=== PATIENT | female | born 1955 | race Caucasian/White ===

== ENCOUNTER 2017-05-28 04:31 | Inpatient (IN) | payer OTHER ==
--- NOTE | 2017-05-28 04:42 | EDPHY ---
H & P Stated Complaint: chest pain HPI/ROS: HPI CHIEF COMPLAINT: Chest pain HISTORY OF PRESENT ILLNESS: This patient very pleasant 62-year-old female she does have significant past medical history for coronary artery disease with 1 stent, she does smoke tobacco and marijuana, she presents emergency room 445 in the morning with chest pain. She states it has been present approximately for 2 hours. She describes it as a dull pain that radiates across her chest up to her shoulders. More right-sided than left-sided. No pleuritic nature. No shortness of breath. No jaw pain neck pain or diaphoresis. No nausea. However pain was rather severe. She distally has had a history for pulmonary embolism. She is not on any anticoagulation. She does tell me her chest pain is still present. Past Medical History: Pulmonary embolism, coronary disease with 1 stent, TIA Past Surgical History: No recent surgery Social History: Daily tobacco use, daily marijuana use, denies other illicit drugs. Denies alcohol. Family History: Noncontributory ROS REVIEW OF SYSTEMS: A comprehensive 10 point review of systems is otherwise negative aside from elements mentioned in the history of present illness. Exam Constitutional appears well nontoxic, triage nursing summary reviewed, vital signs reviewed, awake/alert. Eyes normal conjunctivae and sclera, EOMI, PERRLA. HENT normal inspection, atraumatic, moist mucus membranes, no epistaxis, neck supple/ no meningismus, no raccoon eyes. Respiratory clear to auscultation bilaterally, normal breath sounds, no respiratory distress, no wheezing. Cardiovascular rate normal, regular rhythm, no murmur, no edema, distal pulses normal. Gastrointestinal soft, non-tender, no rebound, no guarding, normal bowel sounds, no distension, no pulsatile mass. Genitourinary no CVA tenderness. Musculoskeletal no midline vertebral tenderness, full range of motion, no calf swelling, no tenderness of extremities, no meningismus, good pulses, neurovascularly intact. Skin pink, warm, & dry, no rash, skin atraumatic. Neurologic awake, alert and oriented x 3, AAOx3, moves all 4 extremities equally, motor intact, sensory intact, CN II-XII intact, normal cerebellar, normal vision, normal speech. Psychiatric normal mood/affect. Heme/Lymph/Immune no lymphadenopathy. Differential diagnosis includes but is not limited to: ACS, atypical chest pain , pneumothorax, pneumonia, pulmonary embolism, aortic dissection, congestive heart failure, tumor, musculoskeletal pain, esophageal pain, GERD, peptic ulcer disease, pancreatitis Medical Decision Making: Plan for this patient IV establishment with full threat monitoring analyst, EKG to rule out acute coronary syndrome, sent troponin, D- dimer given PE history, chest x-ray, electrolytes. Full-dose aspirin given and nitroglycerin. Re-evaluation: EKG interpretation by me on record in [employer] system. Impression time of EKG 4:49 a.m., this is sinus rhythm rate of 60 T-wave abnormalities noted lateral leads V4 V5 V6. AVL. This is changed from previous EKG. 0534AM: Patient's troponin noted to me to be positive. D-dimer negative. Chest x-ray reviewed by myself. One view negative for acute cardiopulmonary disease. Given her abnormal EKG and positive troponin I have Lovenox her. I will admit her to the hospitalist service to telemetry monitoring bed. For chest pain ACS rule out. No evidence of acute ST elevation [place] at this time. 0553AM: Spoke with the hospitalist service Dr. Salamanca, agrees to admit this patient. Reason for admission chest pain with positive troponin. T-wave abnormalities lateral leads. She does have cardiac risk factors which include cardiac stent, tobacco abuse and Age. She is hemodynamically stable and safe for PCU admission. Full-dose aspirin has been given. 2 mg IV morphine. Source: Patient - Personal History Current Tetanus/Diphtheria Vaccine: Yes Current Tetanus Diphtheria and Acellular Pertussis (TDAP): Yes Tetanus Vaccine Date: March 2009 - Medical/Surgical History Hx Asthma: No Hx Cardiac Disease: Yes Hx Renal Disease: No Hx Cirrhosis: No Hx Alcoholism: No Hx HIV/AIDS: No Hx Splenectomy or Spleen Trauma: No Other PMH: CARDIAC STENT, CHOLECYSTECTOMY, UMBILICAL HERNIA WITH REPAIR, TONSILLECTOMY - Social History Smoking Status: Current every day smoker Constitutional: Initial Vital Signs Temperature (C) 36.7 C 05/28/17 04:35 Heart Rate 67 05/28/17 04:35 Respiratory Rate 18 05/28/17 04:35 Blood Pressure 118/62 05/28/17 04:35 O2 Sat (%) 98 05/28/17 04:35 O2 Delivery Mode Room Air Allergies/Adverse Reactions: No Allergies [NKDA] Allergy (Unknown, Verified 01/03/13 10:16) Home Medications: Medication Instructions Recorded Aspirin [Aspirin 81mg (*)] 81 mg PO DAILY #1 tab 05/28/17 Atorvastatin Calcium [Lipitor 20 20 mg PO DAILY #30 tab 05/28/17 mg (*)] Medical Decision Making - Data Points Laboratory Results: Laboratory Results 05/28/17 04:55 05/28/17 04:55 Medications Given: Discontinued Medications Aspirin Buffered (Aspirin Ec) 325 mg PO EDNOW ONE Stop: 05/28/17 04:48 Last Admin: 05/28/17 05:04 Dose: 325 mg Atorvastatin Calcium (Lipitor) 80 mg PO DAILY JAMILA Stop: 11/24/17 08:59 Last Admin: 05/28/17 14:01 Dose: 80 mg Diazepam (Valium) 5 mg PO ONCALL ONE Stop: 05/28/17 10:12 Last Admin: 05/28/17 11:00 Dose: 5 mg Diphenhydramine HCl (Benadryl) 25 mg PO ONCALL ONE Stop: 05/28/17 10:12 Last Admin: 05/28/17 11:00 Dose: 25 mg Enoxaparin Sodium (Lovenox) 60 mg SC EDNOW ONE Stop: 05/28/17 05:46 Last Admin: 05/28/17 05:53 Dose: 60 mg Famotidine (Pepcid) 20 mg PO ONCALL ONE Stop: 05/28/17 10:12 Last Admin: 05/28/17 11:00 Dose: 20 mg Heparin Sodium (Porcine) (Heparin Injection) 0 unit IVP ONCE ONE PRN Reason: Protocol Stop: 05/28/17 06:27 Last Admin: 05/28/17 09:58 Dose: 3,700 units Sodium Chloride (Ns) 1,000 mls @ 0 mls/hr IV EDNOW ONE; Wide Open PRN Reason: Protocol Stop: 05/28/17 04:47 Last Admin: 05/28/17 05:03 Dose: 1,000 mls Heparin Sodium (Porcine) (Heparin 50 Units/Ml (Premix)) 500 mls @ 0 mls/hr IV CONT JAMILA; Per Protocol PRN Reason: Protocol Stop: 11/24/17 06:29 Last Admin: 05/28/17 09:59 Dose: 500 mls Morphine Sulfate (Morphine) 2 mg IVP EDNOW ONE Stop: 05/28/17 05:31 Last Admin: 05/28/17 05:37 Dose: 2 mg Nicotine (Nicoderm Cq) 21 mg TD DAILY JAMILA Stop: 11/24/17 12:29 Last Admin: 05/28/17 14:03 Dose: 21 mg Nitroglycerin (Nitrostat) 0.4 mg SL EDNOW ONE Stop: 05/28/17 04:48 Last Admin: 05/28/17 09:59 Dose: Not Given Ondansetron HCl (Zofran) 4 mg IVP EDNOW ONE Stop: 05/28/17 06:48 Last Admin: 05/28/17 06:48 Dose: 4 mg Departure - Departure Disposition: [facility] Inpatient Acute Clinical Impression: Troponin level elevated, History of coronary artery disease Chest pain Qualifiers: Chest pain type: unspecified Qualified Code(s): R07.9 - Chest pain, unspecified Condition: Fair
[2017-05-28] MEDS ORDERED: NS 1,000 ML IV ONE (04:46)
[2017-05-28] MEDS ORDERED: NITROGLYCERIN 0.4 MG BTL SL ONE (04:47)
[2017-05-28] MEDS ORDERED: ASPIRIN EC 325 MG TAB PO ONE (04:47)
--- NOTE | 2017-05-28 04:51 | CPEKG ---
Heart Rate: 60 RR Interval: 1000 P-R Interval: 176 QRSD Interval: 94 QT Interval: 385 QTC Interval: 385 P [place]: 66 QRS [place]: -19 T Wave [place]: 120 EKG Severity - ABNORMAL ECG - EKG Impression: SINUS RHYTHM EKG Impression: BORDERLINE LEFT AXIS DEVIATION EKG Impression: NONSPECIFIC T ABNORMALITIES, ANT-LAT LEADS Electronically Signed By: Robin Weller 28-May-2017 07:45:12
[2017-05-28 05:07] LABS: % IMMATURE GRANULYOCYTES 0.3 % (0.0-1.1); ABSOLUTE IMMATURE GRANULOCYTES 0.04 10^3/uL (0.00-0.10); ADD DIFF? NO; ADD MORPH? NO; ADD SCAN? NO; ATYPICAL LYMPHOCYTE FLAG 20 (0-99); FRAGMENT RBC FLAG 0 (0-99); HEMATOCRIT 42.1 % (38.0-47.0); HEMOGLOBIN 14.7 g/dL (12.6-16.3); LEFT SHIFT FLG 0 (0-99); LIPEMIA HEMOLYSIS FLAG 90 (0-99); MEAN CELL HEMOGLOBIN 31.7 pg (27.9-34.1); MEAN CELL HEMOGLOBIN CONCENTR. 34.9 g/dL (32.4-36.7); MEAN CELL VOLUME 90.9 fL (81.5-99.8); MEAN PLATELET VOLUME 9.8 fL (8.7-11.7); PLATELET CLUMPS FLAG 0 (0-99); PLATELET COUNT 245 10^3/uL (150-400); RED BLOOD CELL COUNT 4.63 10^6/uL (4.18-5.33); RED CELL DISTRIBUTION WIDTH 13.6 % (11.5-15.2)
[2017-05-28 05:20] LABS: INR 0.87 (0.83-1.16); PROTIME(PATIENT) 11.7 SEC (12.0-15.0)
[2017-05-28 05:21] LABS: ALANINE AMINOTRANSFERASE 26 IU/L (9-52); ALBUMIN 4.3 g/dL (3.5-5.0); ALKALINE PHOSPHATASE 83 IU/L (38-126); ANION GAP 12 mEq/L (8-16); APTT 28.8 SEC (23.0-38.0); ASPARTATE AMINOTRANSFERASE 20 IU/L (14-46); BILIRUBIN,TOTAL 0.7 mg/dL (0.1-1.4); BILIRUBIN-CONJUGATED 0.4 mg/dL (0.0-0.5); BILIRUBIN-UNCONJUGATED 0.3 mg/dL (0.0-1.1); CALCIUM 10.3 mg/dL (8.5-10.4); CARBON DIOXIDE 22 mEq/l (22-31); CHLORIDE 109 mEq/L (97-110); CREATININE 0.7 mg/dL (0.6-1.0); GLOMERULAR FILTRATION RATE > 60; GLUCOSE 109 mg/dL (70-100); POTASSIUM 4.2 mEq/L (3.5-5.2); SODIUM 143 mEq/L (134-144); TOTAL PROTEIN 7.1 g/dL (6.3-8.2)
[2017-05-28 05:31] LABS: CREATINE KINASE-MB FRACTION 1.73 ng/mL (0.00-3.19)
[2017-05-28] MEDS ORDERED: ENOXAPARIN 60 MG/0.6 ML SYR SC ONE ×2 (05:33→05:45)
[2017-05-28] MEDS ORDERED: ACETAMINOPHEN 325 MG TAB PO PRN (06:22)
[2017-05-28] MEDS ORDERED: ONDANSETRON 4 MG/2 ML VIAL IVP PRN (06:22)
[2017-05-28] MEDS ORDERED: ONDANSETRON DISINTEGRATING 4 MG TAB PO PRN (06:22)
[2017-05-28] MEDS ORDERED: oxyCODONE IR 5 MG TAB PO PRN (06:22)
[2017-05-28] MEDS ORDERED: HEPARIN 10,000 UNIT/10 ML MDV IVP ONE (06:26)
[2017-05-28] MEDS ORDERED: HEPARIN 10,000 UNIT/10 ML MDV IVP PRN (06:26)
[2017-05-28] MEDS ORDERED: NITROGLYCERIN 0.4 MG BTL SL PRN (06:27)
[2017-05-28] MEDS ORDERED: NS 1,000 ML IV SCH ×2 (06:30→10:15)
[2017-05-28] MEDS ORDERED: HEPARIN/DEXTROSE 500 ML IV SCH (06:30)
--- NOTE | 2017-05-28 06:31 | PDGENHP ---
History and Physical - Chief Complaint Chest pain - History of Present Illness 62 yo F w/ hx of CAD s/p stenting in 2009 presents with chest pain. She describes acute onset chest pain while having emotional conversation with her son around 3 AM. Pain is moderate severity, mid-sternal with radiation to R axilla; she denies diaphoresis, dizziness, and SOB. She thinks this pain is similar to the pain that led her to getting a stent in 2009. She smokes 1/2-1 PPD and takes no medication despite known CAD. History Information - Allergies/Home Medication List Allergies/Adverse Reactions: No Allergies [NKDA] Allergy (Unknown, Verified 01/03/13 10:16) Home Medications: NK [No Known Home Meds] 05/28/17 [Last Taken Unknown] I have personally reviewed and updated: family history, medical history - Past Medical History coronary artery disease, SVT - Surgical History Reports: cholecystectomy - Family History Additional family history: CHF - Social History Smoking Status: Current every day smoker Drug Use: None Review of Systems ROS: 10pt was reviewed & negative except for what was stated in HPI & below Physical Exam Temp Pulse Resp BP Pulse Ox 36.7 C 56 L 20 124/80 H 96 05/28/17 04:35 05/28/17 06:00 05/28/17 06:00 05/28/17 06:00 05/28/17 06:00 Constitutional: no apparent distress, appears nourished Eyes: PERRL, EOMI Ears, Nose, Mouth, Throat: moist mucous membranes, no oral mucosal ulcers Cardiovascular: regular rate and rhythym, no murmur, rub, or gallop Respiratory: no respiratory distress, clear to auscultation Gastrointestinal: normoactive bowel sounds, soft, non-tender abdomen Skin: warm, no rashes or abrasions Musculoskeletal: full muscle strength, no muscle tenderness Neurologic: AAOx3, CN II-XII Intact Psychiatric: interacting appropriately, not anxious Lab Data & Imaging Review 05/28/17 04:55 05/28/17 04:55 WBC 11.65 10^3/uL (3.80-9.50) H 05/28/17 04:55 RBC 4.63 10^6/uL (4.18-5.33) 05/28/17 04:55 Hgb 14.7 g/dL (12.6-16.3) 05/28/17 04:55 Hct 42.1 % (38.0-47.0) 05/28/17 04:55 MCV 90.9 fL (81.5-99.8) 05/28/17 04:55 MCH 31.7 pg (27.9-34.1) 05/28/17 04:55 MCHC 34.9 g/dL (32.4-36.7) 05/28/17 04:55 RDW 13.6 % (11.5-15.2) 05/28/17 04:55 Plt Count 245 10^3/uL (150-400) 05/28/17 04:55 MPV 9.8 fL (8.7-11.7) 05/28/17 04:55 Neut % (Auto) 65.8 % (39.3-74.2) 05/28/17 04:55 Lymph % (Auto) 26.8 % (15.0-45.0) 05/28/17 04:55 [place] % (Auto) 6.0 % (4.5-13.0) 05/28/17 04:55 Eos % (Auto) 0.5 % (0.6-7.6) L 05/28/17 04:55 Baso % (Auto) 0.6 % (0.3-1.7) 05/28/17 04:55 Nucleat RBC Rel Count 0.0 % (0.0-0.2) 05/28/17 04:55 Absolute Neuts (auto) 7.66 10^3/uL (1.70-6.50) H 05/28/17 04:55 Absolute Lymphs (auto) 3.12 10^3/uL (1.00-3.00) H 05/28/17 04:55 Absolute Monos (auto) 0.70 10^3/uL (0.30-0.80) 05/28/17 04:55 Absolute Eos (auto) 0.06 10^3/uL (0.03-0.40) 05/28/17 04:55 Absolute Basos (auto) 0.07 10^3/uL (0.02-0.10) 05/28/17 04:55 Absolute Nucleated RBC 0.00 10^3/uL (0-0.01) 05/28/17 04:55 Immature Gran % 0.3 % (0.0-1.1) 05/28/17 04:55 Immature Gran # 0.04 10^3/uL (0.00-0.10) 05/28/17 04:55 PT 11.7 SEC (12.0-15.0) L 05/28/17 04:55 INR 0.87 (0.83-1.16) 05/28/17 04:55 APTT 28.8 SEC (23.0-38.0) 05/28/17 04:55 D-Dimer 0.40 ug/mLFEU (0.00-0.50) 05/28/17 04:55 Sodium 143 mEq/L (134-144) 05/28/17 04:55 Potassium 4.2 mEq/L (3.5-5.2) 05/28/17 04:55 Chloride 109 mEq/L (97-110) 05/28/17 04:55 Carbon Dioxide 22 mEq/l (22-31) 05/28/17 04:55 Anion Gap 12 mEq/L (8-16) 05/28/17 04:55 BUN 16 mg/dL (7-23) 05/28/17 04:55 Creatinine 0.7 mg/dL (0.6-1.0) 05/28/17 04:55 Estimated GFR > 60 05/28/17 04:55 Glucose 109 mg/dL (70-100) H 05/28/17 04:55 Calcium 10.3 mg/dL (8.5-10.4) 05/28/17 04:55 Magnesium 2.0 mg/dL (1.6-2.3) 05/28/17 04:55 Total Bilirubin 0.7 mg/dL (0.1-1.4) 05/28/17 04:55 Conjugated Bilirubin 0.4 mg/dL (0.0-0.5) 05/28/17 04:55 Unconjugated Bilirubin 0.3 mg/dL (0.0-1.1) 05/28/17 04:55 AST 20 IU/L (14-46) 05/28/17 04:55 ALT 26 IU/L (9-52) 05/28/17 04:55 Alkaline Phosphatase 83 IU/L (38-126) 05/28/17 04:55 Creatine Kinase 81 IU/L (0-156) 05/28/17 04:55 CK-MB (CK-2) Fraction 1.73 ng/mL (0.00-3.19) 05/28/17 04:55 Troponin I 0.270 ng/mL (0.000-0.034) H 05/28/17 04:55 NT-Pro-B Natriuret Pep 116 pg/mL (0-125) 05/28/17 04:55 Total Protein 7.1 g/dL (6.3-8.2) 05/28/17 04:55 Albumin 4.3 g/dL (3.5-5.0) 05/28/17 04:55 Lipase 98 IU/L (23-300) 05/28/17 04:55 Visualized and Interpreted Chest x-ray results: Yes Chest X-Ray results: no infiltrate Visualized and Interpreted EKG results: Yes EKG additional interpertation: NSR, new T wave flattening in inferior and lateral leads Assessment & Plan Assessment: 62 yo F w/ hx of CAD presents with NSTEMI. Plan: 1. NSTEMI - Trop 0.2 in the setting of chest pain and T wave flattening on ECG. Patient hemodynamically and electrically stable at this time. She was chest pain free on my evaluation after morphine administered in ED. - S/p Lovenox x1, will place on heparin gtt - S/p ASA 325 mg, Nitro SL PRN - Monitor on telemetry - Will hold off on BB currently noting low/normal BP - Cardiology consult for cath today, maintain NPO 2. Hx CAD - Patient reports hx of stent placement in 2009. She does not take any medication despite this and smokes nearly a pack per day, which she had sone for 40 years. - Start ASA 81 qD, Atorvastatin 80 - Low dose metoprolol once able - Acute management as above Diet - NPO Code - Full Ppx - Heparin gtt Dispo - Admit to inpatient for management of ACS
[2017-05-28] MEDS ORDERED: ONDANSETRON 4 MG/2 ML VIAL IVP ONE (06:47)
[2017-05-28] MEDS ORDERED: ATORVASTATIN CALCIUM 40 MG TAB PO SCH (09:00)
[2017-05-28 09:53] LABS: INR 0.94 (0.83-1.16); PROTIME(PATIENT) 12.5 SEC (12.0-15.0)
[2017-05-28 09:54] LABS: APTT 35.3 SEC (23.0-38.0)
[2017-05-28] MEDS ORDERED: diphenhydrAMINE 25 MG CAP PO ONE ×2 (10:11→10:50)
[2017-05-28] MEDS ORDERED: FAMOTIDINE 20 MG TAB PO ONE (10:11)
[2017-05-28] MEDS ORDERED: TEMAZEPAM 15 MG CAP PO PRN (10:11)
[2017-05-28] MEDS ORDERED: DIAZEPAM 5 MG TAB PO ONE (10:11)
--- NOTE | 2017-05-28 10:22 | PDHPUP ---
History & Physical Update H&P update statement: This history and physical update is based on an assessment of the patient which was completed after admission or registration (within 24 hours), but prior to the surgery/procedure. H&P update: H&P reviewed & patient examined, no change in patient's condition since H&P completed
--- NOTE | 2017-05-28 10:22 | PDPROPOC ---
Sedation Plan of Care Sedation Plan of Care: vital signs stable, mental status noted, patient educated of risks, benefits, alternatives, patient can tolerate sedation ASA Classification: ASA 1 Mallampati Score: Class 2 332 Rule: 332
[2017-05-28] MEDS ORDERED: FAMOTIDINE 20 MG TAB ONE (10:50)
[2017-05-28] MEDS ORDERED: DIAZEPAM 5 MG TAB ONE (10:51)
[2017-05-28] MEDS ORDERED: LIDOCAINE 1% 300 MG/30 ML SDV ONE (11:05)
[2017-05-28] MEDS ORDERED: MIDAZOLAM 2 MG/2 ML VIAL ONE (11:05)
[2017-05-28] MEDS ORDERED: fentaNYL 100 MCG/2 ML INJ ONE (11:05)
[2017-05-28] MEDS ORDERED: HEPARIN 10,000 UNIT/10 ML MDV ONE (11:06)
[2017-05-28] MEDS ORDERED: IOPAMIDOL (ISOVUE-370) 150 ML BTL IV ONE (11:06)
[2017-05-28] MEDS ORDERED: VERAPAMIL 5 MG/2 ML VIAL ONE (11:06)
--- NOTE | 2017-05-28 11:09 | PDCARCONS ---
Cardiology Consult Reason for Consult: Non-Q-wave myocardial infarction Chief Complaint: Chest pain Requesting Physician: Hospitalist service History of Present Illness: I am asked to see this 62-year-old female known to our service. Known coronary artery disease with history of PCI of the right coronary artery in 2009 with a bare metal stent. She has had no recurrent cardiac events. Yesterday she awoke with substernal chest pressure. There was some radiation. There was mild nausea. She came to the emergency department. EKG was nonspecific however her troponin was elevated. She was treated conservatively with nitroglycerin oxygen and heparin. Symptoms have resolved. On my arrival this morning she is pain free. Patient denies PND orthopnea, palpitations, syncope, near syncope. Cardiac risk include hyperlipidemia and ongoing continued tobacco abuse. Patient also has a history of SVT documented in 2014. She has had no recurrence. Patient has a history of pulmonary embolic disease treated with anticoagulation for 6 months. Patient has underlying COPD secondary to tobacco abuse. She is currently taking no medications for secondary prevention. She is not taking antiplatelet therapy. She has been offered beta-radha, aspirin in the past. History Information - Allergies/Home Medication List Allergies/Adverse Reactions: No Allergies [NKDA] Allergy (Unknown, Verified 01/03/13 10:16) Home Medications: NK [No Known Home Meds] 05/28/17 [Last Taken Unknown] I have personally reviewed and updated: family history, medical history, social history - Past Medical History coronary artery disease, hyperlipidemia, SVT - Surgical History Reports: cholecystectomy - Family History Positive for: non-pertinent - Social History Smoking Status: Current every day smoker Drug Use: None Cardiac History - Cardiac History Past Cardiac History: PCI Cardiac Risk Factors: current cigarette smoker Timing/Duration: Days Severity: severe Severity Scale: 9 Location: substernal Activities at Onset: rest Modifying Factors: improves with: nitroglycerin, oxygen Associated Symptoms: nausea/vomiting TOR Risk Evaluation age greater or equal to 65: no greater or equal to 3 CAD risk factors: no known CAD(stenosis greater or eqaul to 50%): yes ASA use in past 7 days: yes severe angina(greater or equal to 2 episodes in 24hrs): yes EKG ST changes greater or equal to 0.5mm: no positive cardiac marker: yes Total Score: 4 TOR Score: 19.9% risk Physical Exam Temp Pulse Resp BP Pulse Ox 36.3 C 65 18 93/54 L 91 L 05/28/17 08:42 05/28/17 08:42 05/28/17 08:42 05/28/17 08:42 05/28/17 08:42 Constitutional: chronically ill appearing Eyes: anicteric sclera Ears, Nose, Mouth, Throat: moist mucous membranes, poor dentition Cardiovascular: regular rate and rhythym, pulses symmetric bilaterally, No JVD, No carotid bruit, No edema Peripheral Pulses: 1+: carotid (R), carotid (L), femoral (R), femoral (L), dorsalis-pedis (R), dorsalis-pedis (L) Respiratory: reduced air movement, rhonchi Gastrointestinal: normoactive bowel sounds, soft, non-tender abdomen, No guarding Genitourinary: no bladder fullness Skin: warm, No rash Musculoskeletal: full muscle strength, no muscle tenderness Neurologic: AAOx3, No weakness, No facial droop Psychiatric: interacting appropriately Lymph, Heme, Immunologic: no cervical LAD, no supraclavicular LAD Lab and Imaging 05/28/17 04:55 05/28/17 04:55 WBC 11.65 10^3/uL (3.80-9.50) H 05/28/17 04:55 RBC 4.63 10^6/uL (4.18-5.33) 05/28/17 04:55 Hgb 14.7 g/dL (12.6-16.3) 05/28/17 04:55 Hct 42.1 % (38.0-47.0) 05/28/17 04:55 MCV 90.9 fL (81.5-99.8) 05/28/17 04:55 MCH 31.7 pg (27.9-34.1) 05/28/17 04:55 MCHC 34.9 g/dL (32.4-36.7) 05/28/17 04:55 RDW 13.6 % (11.5-15.2) 05/28/17 04:55 Plt Count 245 10^3/uL (150-400) 05/28/17 04:55 MPV 9.8 fL (8.7-11.7) 05/28/17 04:55 Neut % (Auto) 65.8 % (39.3-74.2) 05/28/17 04:55 Lymph % (Auto) 26.8 % (15.0-45.0) 05/28/17 04:55 [place] % (Auto) 6.0 % (4.5-13.0) 05/28/17 04:55 Eos % (Auto) 0.5 % (0.6-7.6) L 05/28/17 04:55 Baso % (Auto) 0.6 % (0.3-1.7) 05/28/17 04:55 Nucleat RBC Rel Count 0.0 % (0.0-0.2) 05/28/17 04:55 Absolute Neuts (auto) 7.66 10^3/uL (1.70-6.50) H 05/28/17 04:55 Absolute Lymphs (auto) 3.12 10^3/uL (1.00-3.00) H 05/28/17 04:55 Absolute Monos (auto) 0.70 10^3/uL (0.30-0.80) 05/28/17 04:55 Absolute Eos (auto) 0.06 10^3/uL (0.03-0.40) 05/28/17 04:55 Absolute Basos (auto) 0.07 10^3/uL (0.02-0.10) 05/28/17 04:55 Absolute Nucleated RBC 0.00 10^3/uL (0-0.01) 05/28/17 04:55 Immature Gran % 0.3 % (0.0-1.1) 05/28/17 04:55 Immature Gran # 0.04 10^3/uL (0.00-0.10) 05/28/17 04:55 PT 12.5 SEC (12.0-15.0) 05/28/17 09:36 INR 0.94 (0.83-1.16) 05/28/17 09:36 APTT 35.3 SEC (23.0-38.0) 05/28/17 09:36 D-Dimer 0.40 ug/mLFEU (0.00-0.50) 05/28/17 04:55 Sodium 143 mEq/L (134-144) 05/28/17 04:55 Potassium 4.2 mEq/L (3.5-5.2) 05/28/17 04:55 Chloride 109 mEq/L (97-110) 05/28/17 04:55 Carbon Dioxide 22 mEq/l (22-31) 05/28/17 04:55 Anion Gap 12 mEq/L (8-16) 05/28/17 04:55 BUN 16 mg/dL (7-23) 05/28/17 04:55 Creatinine 0.7 mg/dL (0.6-1.0) 05/28/17 04:55 Estimated GFR > 60 05/28/17 04:55 Glucose 109 mg/dL (70-100) H 05/28/17 04:55 Calcium 10.3 mg/dL (8.5-10.4) 05/28/17 04:55 Magnesium 2.0 mg/dL (1.6-2.3) 05/28/17 04:55 Total Bilirubin 0.7 mg/dL (0.1-1.4) 05/28/17 04:55 Conjugated Bilirubin 0.4 mg/dL (0.0-0.5) 05/28/17 04:55 Unconjugated Bilirubin 0.3 mg/dL (0.0-1.1) 05/28/17 04:55 AST 20 IU/L (14-46) 05/28/17 04:55 ALT 26 IU/L (9-52) 05/28/17 04:55 Alkaline Phosphatase 83 IU/L (38-126) 05/28/17 04:55 Creatine Kinase 81 IU/L (0-156) 05/28/17 04:55 CK-MB (CK-2) Fraction 1.73 ng/mL (0.00-3.19) 05/28/17 04:55 Troponin I 0.341 ng/mL (0.000-0.034) H 05/28/17 09:36 NT-Pro-B Natriuret Pep 116 pg/mL (0-125) 05/28/17 04:55 Total Protein 7.1 g/dL (6.3-8.2) 05/28/17 04:55 Albumin 4.3 g/dL (3.5-5.0) 05/28/17 04:55 Lipase 98 IU/L (23-300) 05/28/17 04:55 EKG additional interpertation: EKG reveals sinus rhythm with nonspecific ST-T changes. A/P Assessment: 62-year-old female known coronary disease history of remote RCA stenting with a bare metal stent in 2009 with recurrent substernal chest pressure typical of her angina associated with elevation in troponin nonspecific EKG. Patient has an elevated TOR grade score. Will plan for diagnostic coronary angiogram with an eye towards therapy today. Patient has significant ongoing risk with hyperlipidemia and tobacco abuse. Will treat her tobacco withdrawal symptoms with nicotine patch today. Long discussion regarding cessation. Hyperlipidemia should be managed with statin therapy in light of known coronary disease. Will rediscuss medications with her. In light of her noncompliance if she does need a stent will plan for bare metal as dual antiplatelet therapy nursing home may be difficult. Plan: Diagnostic coronary angiogram. Aggressive secondary prevention with smoking cessation. Review of Systems - Review of Systems Constitutional: denies: chills, fever, malaise EENTM: no symptoms reported Respiratory: shortness of breath Cardiac: chest pain. denies: edema, irregular heart rate, lightheadedness, palpitations, syncope Gastrointestinal/Abdominal: nausea, vomiting. denies: constipation, diarrhea, black stools, blood streaked stools Genitourinary: no symptoms Musculoskelatal: no symptoms Skin: no symptoms Neurological: no symptoms Hematologic/Lymphatic: no symptoms reported Immunologic/allergic: no symptoms reported
[2017-05-28] MEDS ORDERED: ATROPINE SULFATE 1 MG/10 ML SYR IVP PRN (12:19)
--- NOTE | 2017-05-28 12:23 | PDDXCAT ---
Diagnostic Cath Note - . Date: 05/28/17 Heater Mechanic: Nicholas Indication: CCC Class III and IV angina on medical treatment - Procedure Access: left wrist Procedure: left heart catheterization, coronary angiography, left ventriculogram - Materials Left Heart Cath size: 5F Left Heart Cath materials: JL3.5, JR4.0, pigtail - Findings-Left Heart Catheterization LM: Unobstructed LAD: Large vessel extending to the apex: Luminal irregularities up to 30% LCX: Single obtuse marginal branch: Luminal irregularities of 20-30% RCA: Dominant vessel: Site of prior stenting widely patent: Luminal irregularities of 20-30% EDP: 10 mm of mercury LVEF: 50% with inferobasilar akinesis Wall motion: Inferobasilar akinesis consistent with prior myocardial infarction Complications: None Estimated blood loss: <50ml Closure method: TR Band Assessment: 1. Widely patent right coronary artery stent. 2. Moderate nonobstructive atherosclerosis without focal stenosis. 3. Inferobasilar scar with ejection fraction of 50%. Plan: Diagnostic angiogram along with EKG and clinical symptoms consistent with significant coronary artery disease. Recommend aggressive secondary prevention with daily aspirin 81 mg a day, statin therapy, low-dose beta-blockade. Most important issue is smoking cessation. Results discussed with patient's family. Patient Problems: Problems Problem Status Onset History of coronary artery disease Acute Chest pain Acute Troponin level elevated Acute
[2017-05-28] MEDS ORDERED: NICOTINE 21 MG/24 HR PATCH TD SCH (12:30)
[2017-05-28 16:35] VITALS: BP 109/52; PULSE 50; RESP 13; TEMP 97.5; O2SAT 96
--- NOTE | 2017-05-28 17:17 | GDS ---
[f rep st] DISCHARGE SUMMARY DISCHARGE DIAGNOSES: 1. Chest pain with mild elevation of troponin, although with nonobstructive coronary disease. 2. History of supraventricular tachycardia. HISTORY: This is a 62-year-old female who had chest pain during an emotional conversation overnight . HOSPITAL COURSE: The patient was admitted and did have mild troponin elevation. She went to the ia th lab, which showed an open stent and some 20% to 30% irregularities of other vessels, without any focal stenosis. I suspect she might have had some coronary spasm due to the emotional content versu s emotional conversation. She is currently chest pain-free, and she will be discharged home after heart catheterization precau tions are finished. We prescribed statin as well as aspirin for her. /[id number]/MODL
[2017-05-29] MEDS ORDERED: ASPIRIN EC 81 MG TAB PO SCH (09:00)
== END 2017-05-28 18:09 | disposition home or self-care (01) | DRG 287 ==
LOC: F2W 08:30
PROVIDERS: ADMIT Student in an Organized Health Care Education/Training Program; ATTEND Student in an Organized Health Care Education/Training Program
DX: R07.9 Chest pain, unspecified (principal); I25.10 Atherosclerotic heart disease of native coronary artery without angina pectoris; Z95.5 Presence of coronary angioplasty implant and graft; J44.9 Chronic obstructive pulmonary disease, unspecified; E78.5 Hyperlipidemia, unspecified; Z86.711 Personal history of pulmonary embolism; F17.210 Nicotine dependence, cigarettes, uncomplicated
CPT/HCPCS: 96374; C1769; J1644; J1650; J2250; J2405; J3010; Q9967

== ENCOUNTER 2017-07-28 15:33 | Inpatient (IN) | payer OTHER ==
--- NOTE | 2017-07-28 15:50 | CPEKG ---
Heart Rate: 56 RR Interval: 1071 P-R Interval: 180 QRSD Interval: 98 QT Interval: 424 QTC Interval: 410 P [place]: 74 QRS [place]: -4 T Wave [place]: 59 EKG Severity - NORMAL ECG - EKG Impression: SINUS RHYTHM Electronically Signed By: Ranulfo Pizano 28-Jul-2017 15:58:32
--- NOTE | 2017-07-28 15:53 | EDPHY ---
H & P Stated Complaint: Chest pain Time Seen by Provider: 07/28/17 15:45 HPI/ROS: CHIEF COMPLAINT: Chest pain HISTORY OF PRESENT ILLNESS: The patient presents to the ED with chest pain that began at noon. The patient reports his symptoms began after arguing with her family. She had a similar bout of pain in May which led to her hospitalization. She underwent an angiogram at that point time which demonstrated no evidence of flow limiting stenosis. She had a patent right coronary artery stent. The patient denies fever, cough or congestion. She did stop smoking cigarettes several weeks ago. The patient tells me she is reluctant to take Lipitor secondary to concerns about its side effects. She does continue to take aspirin on a daily basis. The patient currently reports her pain is sharp, left-sided and adjacent to her mid sternal area. REVIEW OF SYSTEMS: A comprehensive 10 point review of systems is otherwise negative aside from elements mentioned in the history of present illness. Source: Patient Exam Limitations: No limitations - Personal History Current Tetanus/Diphtheria Vaccine: Yes Tetanus Vaccine Date: March 2009 - Medical/Surgical History Hx Asthma: No Hx Chronic Respiratory Disease: No Hx Diabetes: No Hx Cardiac Disease: Yes Hx Renal Disease: No Hx Cirrhosis: No Hx Alcoholism: No Hx HIV/AIDS: No Hx Splenectomy or Spleen Trauma: No Other PMH: CARDIAC STENT, CHOLECYSTECTOMY, UMBILICAL HERNIA WITH REPAIR, TONSILLECTOMY - Social History Smoking Status: Current every day smoker - Physical Exam Exam: General Appearance: Alert, no distress Eyes: Pupils equal and round no pallor or injection ENT, Mouth: Mucous membranes moist Respiratory: There are no retractions, lungs are clear to auscultation Cardiovascular: Regular rate and rhythm Gastrointestinal: Abdomen is soft and nontender, no masses, bowel sounds normal Neurological: A&O, normal motor function, normal sensory exam, normal cranial nerves Skin: Warm and dry, no rashes Musculoskeletal: Neck is supple nontender Extremities: symmetrical, full range of motion Constitutional: Initial Vital Signs Temperature (C) 36.6 C 07/28/17 15:37 Heart Rate 68 07/28/17 15:37 Respiratory Rate 18 07/28/17 15:37 Blood Pressure 117/75 07/28/17 15:37 O2 Sat (%) 96 07/28/17 15:37 O2 Delivery Mode Nasal Cannula O2 (L/minute) 2 Allergies/Adverse Reactions: No Allergies [NKDA] Allergy (Unknown, Verified 07/28/17 15:35) Home Medications: Medication Instructions Recorded NK [No Known Home Meds] 07/28/17 Medical Decision Making - Diagnostics EKG Interpretation: EKG: Complete interpretation has been separately recorded in the [facility] archive. Summary impression: Sinus rhythm, rate 56 ED Course/Re-evaluation: I reviewed the patient's past medical records including her hospitalization in May of this year and her angiogram which demonstrated no more than 20-30% stenoses. The patient's EKG upon arrival demonstrates no evidence of ischemia. The patient's initial troponin is elevated at 0.3. This is a chronic elevation which has been present since May. I discussed the case with Dr. Miller from Cardiology. Given the fact the patient has been noncompliant with her medications in aspirin and is having ischemic chest pain he does recommend heparinization with admission to the hospital. He will consult on the patient tomorrow morning. I discussed this with the patient at 5:00 p.m.. She is agreeable to hospitalization. Consultation was made with Dr. Calhoun from the hospitalist service. Differential Diagnosis: Differential diagnosis considered includes costochondritis, acute coronary syndrome, pericarditis, anxiety, esophageal spasm - Data Points Laboratory Results: Laboratory Results 07/28/17 15:50 07/28/17 15:50 07/28/17 07/28/17 15:50 15:50 WBC 5.67 10^3/uL 10^3/uL (3.80-9.50) RBC 4.47 10^6/uL 10^6/uL (4.18-5.33) Hgb 14.4 g/dL g/dL (12.6-16.3) Hct 40.4 % % (38.0-47.0) MCV 90.4 fL fL (81.5-99.8) MCH 32.2 pg pg (27.9-34.1) MCHC 35.6 g/dL g/dL (32.4-36.7) RDW 13.6 % % (11.5-15.2) Plt Count 184 10^3/uL 10^3/uL (150-400) MPV 9.4 fL fL (8.7-11.7) Neut % (Auto) 56.9 % % (39.3-74.2) Lymph % (Auto) 33.3 % % (15.0-45.0) Denali % (Auto) 8.5 % % (4.5-13.0) Eos % (Auto) 0.4 % L % (0.6-7.6) Baso % (Auto) 0.7 % % (0.3-1.7) Nucleat RBC Rel Count 0.0 % % (0.0-0.2) Absolute Neuts (auto) 3.23 10^3/uL 10^3/uL (1.70-6.50) Absolute Lymphs (auto) 1.89 10^3/uL 10^3/uL (1.00-3.00) Absolute Monos (auto) 0.48 10^3/uL 10^3/uL (0.30-0.80) Absolute Eos (auto) 0.02 10^3/uL L 10^3/uL (0.03-0.40) Absolute Basos (auto) 0.04 10^3/uL 10^3/uL (0.02-0.10) Absolute Nucleated RBC 0.00 10^3/uL 10^3/uL (0-0.01) Immature Gran % 0.2 % % (0.0-1.1) Immature Gran # 0.01 10^3/uL 10^3/uL (0.00-0.10) Sodium 142 mEq/L mEq/L (134-144) Potassium 4.3 mEq/L mEq/L (3.5-5.2) Chloride 109 mEq/L mEq/L (97-110) Carbon Dioxide 22 mEq/l mEq/l (22-31) Anion Gap 11 mEq/L mEq/L (8-16) BUN 14 mg/dL mg/dL (7-23) Creatinine 0.7 mg/dL mg/dL (0.6-1.0) Estimated GFR > 60 Glucose 74 mg/dL mg/dL (70-100) Calcium 9.8 mg/dL mg/dL (8.5-10.4) Troponin I 0.327 ng/mL H ng/mL (0.000-0.034) Medications Given: Discontinued Medications Aspirin (Aspirin) 324 mg PO EDNOW ONE Stop: 07/28/17 16:53 Last Admin: 07/28/17 16:55 Dose: 324 mg Departure - Departure Disposition: [facility] Inpatient Acute Clinical Impression: Chest pain Condition: Good Referrals: Niko Hadley MD [Primary Care Provider] - As per Instructions
[2017-07-28 16:07] LABS: PLATELET COUNT 184 10^3/uL (150-400)
[2017-07-28] MEDS ORDERED: ASPIRIN 81 MG CHEWABLE TAB PO ONE (16:52)
[2017-07-28] MEDS ORDERED: HEPARIN/DEXTROSE 500 ML IV ONE (17:13)
[2017-07-28] MEDS ORDERED: HEPARIN 10,000 UNIT/10 ML MDV IVP ONE (17:13)
[2017-07-28] MEDS ORDERED: ONDANSETRON DISINTEGRATING 4 MG TAB PO PRN (17:53)
[2017-07-28] MEDS ORDERED: ONDANSETRON 4 MG/2 ML VIAL IVP PRN (17:53)
[2017-07-28] MEDS ORDERED: HEPARIN 10,000 UNIT/10 ML MDV IVP PRN (17:55)
[2017-07-28] MEDS ORDERED: HEPARIN/DEXTROSE 500 ML IV SCH (18:00)
[2017-07-28 18:32] LABS: INR 0.85 (0.83-1.16); PROTIME(PATIENT) 11.5 SEC (12.0-15.0)
--- NOTE | 2017-07-28 19:31 | GHP ---
[f rep st] HISTORY AND PHYSICAL DATE OF ADMISSION: 07/28/2017 CHIEF COMPLAINT: Chest pain. HISTORY OF PRESENT ILLNESS: This is a 62-year-old female, with a history of coronary artery disease, status post stenting of her right coronary artery, who presents with complaints of chest pain which began today, left-sided, sharp, with an emotional upset. Patient had a disagreement with 1 of her so ns, and noted after she got in the car to drive and think, that she was experiencing this intense lef t-sided, sharp chest pain. The patient noted that the pain would ebb and flow a bit, but remained mo re persistent; therefore, drove to the emergency department for evaluation. The patient denies any a ssociated shortness of breath. Denies a pleuritic nature to this pain. Also, denies any exertional component to the pain. Reports that she intermittently can experience the symptoms since her cardiac intervention, but typically with emotional stress. It is not usually with physical exertion. The p atient denies any associated nausea, vomiting, or diaphoresis. She has quit smoking in the last 5 da ys, which has been difficult. Does have a chronic cough that she attributes to lactose consumption, for which she is cutting back in hopes of decreasing her cough. Denies any limitations in her activi ty preceding this hospitalization. She has not been taking any of her medications for coronary arter y disease. PAST MEDICAL HISTORY: 1. Coronary artery disease. Hospitalized on 05/28/2017, with complaints of chest pain, had noted RC A stenting in 2009, was taken for cardiac catheterization during this hospitalization and found to means ve patent flow through her vessels. 2. SVT. SOCIAL HISTORY: The patient quit smoking 5 days ago, otherwise was heavy smoker. Denies any illicit drugs. Uses daily marijuana and drinks occasionally. FAMILY HISTORY: Positive for coronary disease in multiple male relatives. REVIEW OF SYSTEMS: A 10-point review of systems is negative with the exception of that reported in t he HPI. PHYSICAL EXAMINATION: VITAL SIGNS: Blood pressure 155/74, heart rate 65, respiratory rate 14, 98% o n 2 L, 36.6. GENERAL: This is a thin-appearing female, sitting up in bed. HEENT: Notable for mois t mucous membranes. Eyes: Negative for any icterus. CARDIAC: Patient is regular rate and rhythm. PULMONARY: She is clear to auscultation bilaterally. GASTROINTESTINAL: Positive bowel sounds. AB DOMEN: Soft and nontender in all 4 quadrants. MUSCULOSKELETAL: Negative for any lower extremity ed liset. SKIN: Negative for any rashes. NEUROLOGIC: She is alert and oriented x3. PSYCHIATRIC: She is pleasant and cooperative on interview and examination. LABORATORY DATA: White count 5.6, hematocrit 40.4, platelet count of 182. Sodium 142, creatinine 0. 7. Troponin is 0.32, similar to measurements in May. EKG, which I personally reviewed and int erpreted, shows sinus rhythm, normal axis, normal intervals, with no acute ST-T changes. Chest x-ray has not been performed. ASSESSMENT AND PLAN: This is a 62-year-old female, with a history of coronary artery disease, presen ting with chest pain, left-sided, described as sharp. 1. Acute chest pain. Symptoms are a little less classic for exertional ischemic chest pain; however , patient has known disease with indeterminate troponin. Cardiology was consulted from the emergency department and wishes patient to be placed on a heparin drip, which is being initiated now, will elie nd her troponins, and keep her n.p.o. in anticipation of possible cardiac catheterization in the [facility]. 2. Tobacco dependence. The patient has recently stopped her use of tobacco, will offer a patch if s he desires. 3. Coronary artery disease. Patient is not taking any home medications. [facility], aspirin was recommended and not taken, as well as a statin. We will initiate both. 4. Diet: N.p.o. after midnight. 5. Prophylaxis: The patient is on a heparin drip. DISPOSITION: Potentially less than 2 midnights if she rules out and has negative cardiac imaging in the morning. I have discussed the case with the emergency room physician. Patient will be triaged to the PCU for care. /[id number]/MODL
[2017-07-28] MEDS: ROSUVASTATIN CALCIUM 20 MG TAB PO SCH (21:21)
[2017-07-29 05:22] LABS: INR 0.92 (0.83-1.16); PROTIME(PATIENT) 12.3 SEC (12.0-15.0)
[2017-07-29] MEDS: ROSUVASTATIN CALCIUM 20 MG TAB PO SCH (10:03)
[2017-07-29] MEDS: ASPIRIN 325 MG TAB PO SCH (10:03)
--- NOTE | 2017-07-29 13:29 | HOSPPROG ---
Hospitalist Progress Note Assessment/Plan: 62-year-old with a history of coronary artery disease presents with increasing chest pain after a very stressful event. The pain persisted for several hours before she came into the emergency department. Initial evaluation she did have indeterminate troponins noted. #. Chest pain: Unclear etiology possible ischemic given history of heart disease as well as indeterminate troponin. * Cardiology consult reviewed, They will review previous angiogram and determin further evaluation * OK to eat * Await their assessment for further recommendations. Patient will need additional midnight stay for cp and elevated troponins. # history of SVT Subjective: Pain-free currently. Objective: Vital Signs Temp Pulse Resp BP Pulse Ox 37 C 61 10 L 119/66 96 07/29/17 10:58 07/29/17 10:58 07/29/17 10:58 07/29/17 10:58 07/29/17 10:58 Laboratory Results 07/29/17 05:32 07/28/17 07/29/17 07/30/17 05:59 05:59 05:59 Intake Total 500 Balance 500 PT 12.3 SEC (12.0-15.0) 07/29/17 03:54 INR 0.92 (0.83-1.16) 07/29/17 03:54 - Physical Exam Constitutional: no apparent distress Eyes: PERRL Ears, Nose, Mouth, Throat: moist mucous membranes Cardiovascular: regular rate and rhythym Respiratory: no respiratory distress Gastrointestinal: normoactive bowel sounds ICD10 Worksheet Patient Problems: Problems Problem Status Onset History of coronary artery disease Acute Chest pain Acute Troponin level elevated Acute
--- NOTE | 2017-07-29 15:54 | PDMN ---
Medical Necessity Medical necessity: change to IP; los>2mn for ongoing eval of chest pain of unclear etiology, r/o ischemia r/t continued chest pain, further cardiology input, and elevated troponins; hx CAD; per order and progress note 07/29/17
[2017-07-29] MEDS ORDERED: NITROGLYCERIN 0.4 MG BTL SL PRN (16:32)
[2017-07-29] MEDS ORDERED: ACETAMINOPHEN 325 MG TAB PO PRN (16:32)
[2017-07-29] MEDS ORDERED: TEMAZEPAM 15 MG CAP PO PRN (16:32)
--- NOTE | 2017-07-29 16:56 | ASMTCMCOM ---
CM Note CM Note Notes: Pt admitted for Chest pain, will have angiogram tomorrow. Met w/pt and son present; she said she currently lives at home with other son. She plans on returning there, says son may not be there but she has friend who can come be with her to help her out if she needs it. CM w/f to see if any dc needs after angiogram. Date Signed: 07/29/2017 04:55 PM Electronically Signed By:Jennifer Calero RN
--- NOTE | 2017-07-29 17:20 | GCON ---
[f rep st] CONSULTATION HISTORY OF PRESENT ILLNESS: She has been admitted to the hospital because of chest pain. She has kn own coronary disease, having had stents in the right coronary in 2009 and then had similar discomfort 05/28/2017; at which point she was having radiating chest pain that was more severe, but she had an angiogram at that time, which was normal. Now, she has come in with elevated troponins, the discomfo rt, and is here for further evaluation. She does not have chest pain now. She has had no chest pain since she came in. She has no fever, ch ills, cough. No nausea, vomiting, diarrhea. No edema. No hot, swollen joints. No major rashes. She is taking her medications, doing well. She quit smoking 5 days ago. She has COPD. She does hav e a chronic quiet cough. She has had a history of tachycardia. CARDIAC RISK FACTORS: Positive for known coronary disease, smoking, dyslipidemia, family history of premature coronary artery disease. Cardiac risk factors are negative for hypertension, hyperuricemia , obesity, and diabetes. FAMILY HISTORY: She has many people in the family who have had early coronary disease. SOCIAL HISTORY: She is an active woman. She has been having trouble with 1 son who gets her very up set. Another son was here when I am talking to her today. I have spoken with her 3 different times today, but 1 younger son was here, and we had a long conversation together. She does not smoke at th is point, but she has and she uses marijuana. She does not drink significant amounts of alcohol. REVIEW OF SYSTEMS: A 12-point review of systems negative except as noted in the chart and here. MEDICATIONS: Listed. PHYSICAL EXAMINATION: VITAL SIGNS: Blood pressure 145/70, respiratory rate 14, heart rate 60. HEEN T: Pupils equal and reactive. CARDIOVASCULAR: S1, S2. Soft systolic murmur left sternal border. No diastolic murmur. No S3, S4. No rubs. PULMONARY: Rhonchi bilaterally. No rales, wheezing, or dullness. ABDOMEN: Soft, nontender without masses. CVA: No tenderness. EXTREMITIES: No edema, i nflammation, or ulceration. PSYCH: No obvious anxiety or depression. NEURO: Grossly intact. LABORATORY DATA: Her first troponin was 0.32. She had similar elevations in the past. Her hematocr it is 40. Sodium 142. Renal function is essentially normal. Her EKG shows sinus rhythm with nonspe cific ST-T changes. Chest x-ray shows haziness at costophrenic angles bilaterally with a question of subsegmental atelect asis, hyperexpanded lungs. ASSESSMENT AND PLAN: 1. Coronary artery disease. The patient has significant coronary artery disease and now comes in on ce again with chest pain, mildly elevated troponin, and we cannot be totally sure she does not have a cute ischemia. I went over with her stress testing versus coronary angiography, and she wants a defi nitive diagnosis and I recommend coronary angiography to make sure that she is doing well at this lexy e. I do not think there was enough stress or trauma for a takotsubo type syndrome. We will check wi th an LV-gram tomorrow and left heart catheterization to see how she is doing. At this time, she is having no chest pain. The patient has been walking around the floor and has not had pains. Other pr oblems are:. 2. Hypertension. 3. Hyperlipidemia. 4. Smoking. 5. Chronic obstructive pulmonary disease. 6. Stress. We talked extensively about how she might be able to manage her stress better because it is an ongoin g issue in her life. We will follow along and see how she does, but she has agreed to do coronary an giography tomorrow. I have discussed her case with Dr. Flores, and he is the interventionalist who will be available karolina . I have discussed her case with the hospitalist. /[id number]/MODL
[2017-07-30 04:40] LABS: INR 0.9 (0.83-1.16)
[2017-07-30 04:49] LABS: PLATELET COUNT 170 10^3/uL (150-400)
[2017-07-30] MEDS ORDERED: NS 1,000 ML IV SCH (07:00)
[2017-07-30] MEDS ORDERED: diphenhydrAMINE 25 MG CAP PO ONE ×2 (08:00→08:38)
[2017-07-30] MEDS ORDERED: FAMOTIDINE 20 MG TAB PO ONE (08:00)
[2017-07-30] MEDS ORDERED: ASPIRIN EC 325 MG TAB PO ONE ×2 (08:00→08:39)
[2017-07-30] MEDS ORDERED: DIAZEPAM 5 MG TAB PO ONE (08:00)
[2017-07-30] MEDS ORDERED: DIAZEPAM 5 MG TAB ONE (08:39)
[2017-07-30] MEDS ORDERED: FAMOTIDINE 20 MG TAB ONE (08:39)
[2017-07-30] MEDS ORDERED: MIDAZOLAM 2 MG/2 ML VIAL ONE (09:13)
[2017-07-30] MEDS ORDERED: LIDOCAINE 1% 300 MG/30 ML SDV ONE (09:13)
[2017-07-30] MEDS ORDERED: fentaNYL 100 MCG/2 ML INJ ONE (09:13)
[2017-07-30] MEDS ORDERED: IOPAMIDOL (ISOVUE-370) 150 ML BTL IV ONE (09:14)
--- NOTE | 2017-07-30 09:17 | PDPROPOC ---
Sedation Plan of Care Sedation Plan of Care: vital signs stable, mental status noted, patient educated of risks, benefits, alternatives, patient can tolerate sedation ASA Classification: ASA 2 Planned drugs: fentanyl, midazolam Mallampati Score: Class 2 Mallampati Reference Image: Patient passed 3-3-2 rule?: Yes
[2017-07-30] MEDS ORDERED: HEPARIN 10,000 UNIT/10 ML MDV ONE (09:59)
[2017-07-30] MEDS ORDERED: NITROGLYCERIN 1,500 MCG/15 ML VIAL MISC ONE (10:24)
[2017-07-30] MEDS ORDERED: ATROPINE SULFATE 1 MG/10 ML SYR IVP PRN (10:56)
--- NOTE | 2017-07-30 11:13 | CPIP ---
[f rep st] INVASIVE CARDIAC PROCEDURE DATE OF PROCEDURE: 07/30/2017 PROCEDURE: 1. Coronary angiography. 2. Left ventriculography. INDICATION: Acute coronary syndrome with elevated troponin. ACCESS: The patient was prepped and draped in a sterile fashion. 1% lidocaine was used to anestheti ze the right inguinal region. A 6-Belarusian introducer sheath was placed selectively into the right com mon femoral artery via modified Seldinger technique. CORONARY ANGIOGRAPHY: A 6-Belarusian JL4 was advanced to the left main coronary artery and images obtain ed. The left main coronary artery bifurcated into an LAD and circumflex coronary arteries. The left main coronary artery appeared normal. The left anterior descending coronary artery was diseased in the proximal and mid segments. In the mid 1 segment, there was a discreet 40% stenosis present. In the mid 2 segment, there was a discrete 50% stenosis present. The 2nd diagonal artery was a large ve ssel. The 2nd diagonal artery had an ostial 40% to 50% stenosis present. The circumflex coronary ar petey was a large vessel, but was nondominant. The circumflex coronary artery had mild diffuse diseas e throughout. There was no stenosis greater than 20%. A 6-Belarusian JR4 was advanced to the right coronary artery and images obtained. The 6-Belarusian JR4 did n ot engage the right coronary artery well and was exchanged for a 6-Belarusian no-torque right catheter. 6-Belarusian no torque right catheter was used to image the right coronary artery. The right coronary ar petey had mild diffuse disease throughout. There was no stenosis greater than 20% throughout the vess el. In the ostial segment, there was a discreet 40% stenosis present. In the midvessel, previously placed stent can be seen. The previously placed stent was widely patent with no evidence of signific ant in-stent restenosis. LEFT VENTRICULOGRAPHY: A 6-Belarusian pigtail catheter was advanced into the left ventricle and images o btained. Left ventricle is normal in size with mildly reduced systolic function. The estimated ejec tion fraction was 45% to 50%. The apex was hypokinetic. COMPLICATIONS: None. CONCLUSIONS: 1. Patent right coronary artery stent. 2. Mild to moderate coronary artery disease without flow limitation. 3. Reduced left ventricular systolic function with an estimated ejection fraction of 45% to 50% with apical hypokinesis. Consider Takotsubo cardiomyopathy. /[id number]/MODL
--- NOTE | 2017-07-30 11:13 | CPIP ---
[f rep st] INVASIVE CARDIAC PROCEDURE DATE OF PROCEDURE: 07/30/2017 PROCEDURE: 1. Coronary angiography. 2. Left ventriculography. INDICATION: Acute coronary syndrome with elevated troponin. ACCESS: The patient was prepped and draped in a sterile fashion. 1% lidocaine was used to anestheti ze the right inguinal region. A 6-Haitian introducer sheath was placed selectively into the right com mon femoral artery via modified Seldinger technique. CORONARY ANGIOGRAPHY: A 6-Haitian JL4 was advanced to the left main coronary artery and images obtain ed. The left main coronary artery bifurcated into an LAD and circumflex coronary arteries. The left main coronary artery appeared normal. The left anterior descending coronary artery was diseased in the proximal and mid segments. In the mid 1 segment, there was a discreet 40% stenosis present. In the mid 2 segment, there was a discrete 50% stenosis present. The 2nd diagonal artery was a large ve ssel. The 2nd diagonal artery had an ostial 40% to 50% stenosis present. The circumflex coronary ar petey was a large vessel, but was nondominant. The circumflex coronary artery had mild diffuse diseas e throughout. There was no stenosis greater than 20%. A 6-Haitian JR4 was advanced to the right coronary artery and images obtained. The 6-Haitian JR4 did n ot engage the right coronary artery well and was exchanged for a 6-Haitian no-torque right catheter. 6-Haitian no torque right catheter was used to image the right coronary artery. The right coronary ar petey had mild diffuse disease throughout. There was no stenosis greater than 20% throughout the vess el. In the ostial segment, there was a discreet 40% stenosis present. In the midvessel, previously placed stent can be seen. The previously placed stent was widely patent with no evidence of signific ant in-stent restenosis. LEFT VENTRICULOGRAPHY: A 6-Haitian pigtail catheter was advanced into the left ventricle and images o btained. Left ventricle is normal in size with mildly reduced systolic function. The estimated ejec tion fraction was 45% to 50%. The apex was hypokinetic. COMPLICATIONS: None. CONCLUSIONS: 1. Patent right coronary artery stent. 2. Mild to moderate coronary artery disease without flow limitation. 3. Reduced left ventricular systolic function with an estimated ejection fraction of 45% to 50% with apical hypokinesis. Consider Takotsubo cardiomyopathy. /[id number]/MODL
--- NOTE | 2017-07-30 11:13 | CPIP ---
[f rep st] INVASIVE CARDIAC PROCEDURE DATE OF PROCEDURE: 07/30/2017 PROCEDURE: 1. Coronary angiography. 2. Left ventriculography. INDICATION: Acute coronary syndrome with elevated troponin. ACCESS: The patient was prepped and draped in a sterile fashion. 1% lidocaine was used to anestheti ze the right inguinal region. A 6-Gibraltarian introducer sheath was placed selectively into the right com mon femoral artery via modified Seldinger technique. CORONARY ANGIOGRAPHY: A 6-Gibraltarian JL4 was advanced to the left main coronary artery and images obtain ed. The left main coronary artery bifurcated into an LAD and circumflex coronary arteries. The left main coronary artery appeared normal. The left anterior descending coronary artery was diseased in the proximal and mid segments. In the mid 1 segment, there was a discreet 40% stenosis present. In the mid 2 segment, there was a discrete 50% stenosis present. The 2nd diagonal artery was a large ve ssel. The 2nd diagonal artery had an ostial 40% to 50% stenosis present. The circumflex coronary ar petey was a large vessel, but was nondominant. The circumflex coronary artery had mild diffuse diseas e throughout. There was no stenosis greater than 20%. A 6-Gibraltarian JR4 was advanced to the right coronary artery and images obtained. The 6-Gibraltarian JR4 did n ot engage the right coronary artery well and was exchanged for a 6-Gibraltarian no-torque right catheter. 6-Gibraltarian no torque right catheter was used to image the right coronary artery. The right coronary ar petey had mild diffuse disease throughout. There was no stenosis greater than 20% throughout the vess el. In the ostial segment, there was a discreet 40% stenosis present. In the midvessel, previously placed stent can be seen. The previously placed stent was widely patent with no evidence of signific ant in-stent restenosis. LEFT VENTRICULOGRAPHY: A 6-Gibraltarian pigtail catheter was advanced into the left ventricle and images o btained. Left ventricle is normal in size with mildly reduced systolic function. The estimated ejec tion fraction was 45% to 50%. The apex was hypokinetic. COMPLICATIONS: None. CONCLUSIONS: 1. Patent right coronary artery stent. 2. Mild to moderate coronary artery disease without flow limitation. 3. Reduced left ventricular systolic function with an estimated ejection fraction of 45% to 50% with apical hypokinesis. Consider Takotsubo cardiomyopathy. /[id number]/MODL
[2017-07-30] MEDS ORDERED: CARVEDILOL 3.125 MG TAB PO ONE ×2 (14:09→21:00)
--- NOTE | 2017-07-30 14:14 | HOSPPROG ---
Hospitalist Progress Note Assessment/Plan: 62-year-old with a history of coronary artery disease presents with increasing chest pain after a very stressful event. The pain persisted for several hours before she came into the emergency department. Initial evaluation she did have indeterminate troponins noted. #. Chest pain: Elevated troponin with negative obstructive coronary artery disease. Likely Takasubo with some apical hypokinesis noted on LV gram. * Patient reluctant to try beta-radha due to previous bradycardia * Start low-dose Coreg today * Monitor telemetry overnight if not bradycardic can DC tomorrow morning on Coreg and aspirin daily # history of SVT status post ablation # history of bradycardia exacerbated by atenolol, patient has felt very fatigued previously on atenolol and is reluctant to try beta-radha please see above plan Disposition: Patient can be discharged tomorrow on aspirin and Coreg if she does not become significantly bradycardic overnight. She will follow up with Dr. Jensen as an outpatient. Subjective: Doing well. No significant complaints currently. Objective: Vital Signs Temp Pulse Resp BP Pulse Ox 36.9 C 57 L 12 136/63 H 91 L 07/30/17 08:00 07/30/17 08:00 07/30/17 08:00 07/30/17 08:00 07/30/17 13:38 Laboratory Results 07/30/17 03:20 07/30/17 03:20 07/29/17 07/30/17 07/31/17 05:59 05:59 05:59 Intake Total 400 850 Balance 400 850 PT 12.0 SEC (12.0-15.0) 07/30/17 03:20 INR 0.90 (0.83-1.16) 07/30/17 03:20 - Physical Exam Constitutional: no apparent distress, appears nourished Respiratory: no respiratory distress Neurologic: AAOx3 Psychiatric: interacting appropriately, not anxious, not encephalopathic ICD10 Worksheet Patient Problems: Problems Problem Status Onset History of coronary artery disease Acute Chest pain Acute Troponin level elevated Acute
[2017-07-30] MEDS: ROSUVASTATIN CALCIUM 20 MG TAB PO SCH (14:47)
[2017-07-30] MEDS: ACETAMINOPHEN 325 MG TAB PO PRN ×2 (16:43→22:28)
[2017-07-31] MEDS: ACETAMINOPHEN 325 MG TAB PO PRN (06:40)
[2017-07-31] MEDS: ROSUVASTATIN CALCIUM 20 MG TAB PO SCH (08:25)
[2017-07-31] MEDS ORDERED: CARVEDILOL 3.125 MG TAB PO SCH (09:00)
[2017-07-31] MEDS: ASPIRIN 325 MG TAB PO SCH (09:57)
--- NOTE | 2017-07-31 11:50 | HOSPPROG ---
Hospitalist Progress Note Assessment/Plan: 62-year-old with a history of coronary artery disease presents with increasing chest pain after a very stressful event. The pain persisted for several hours before she came into the emergency department. Initial evaluation she did have indeterminate troponins noted and felt to ACS. Cardiac cath c/w decreased LV systolic function with an EF of 45-50%, Apical Hypokinesis, no flow limiting stenosis. Diagnosis of Takatsubo's Cardiomyopathy favored. No procedural interventions performed. Medical optimization favored. She has a hx of symptomatic bradycardia which she reports a HR in the 30's intermittently. Carvedilol 1.56mg BID started on 117 p.m. with the hope that she can tolerate. Hr as low as 48 overnight, not symptomatic. She may be discharged today, but she wants to have a discussion about whether she should continue Carvedilol at current dose with cardiology first. Cont Crestor 20mg daily Continue Aspirin 325 mg daily for now, may be able to change to 81mg. #. Chest pain: Elevated troponin with negative obstructive coronary artery disease. Likely Takasubo with some apical hypokinesis noted on LV gram. * Patient reluctant to try beta-radha due to previous bradycardia * Start low-dose Coreg today * Monitor telemetry overnight if not bradycardic can DC tomorrow morning on Coreg and aspirin daily # history of SVT status post ablation # history of bradycardia exacerbated by atenolol, patient has felt very fatigued previously on atenolol and is reluctant to try beta-radha please see above plan Disposition: Patient can be discharged tomorrow on aspirin and Coreg if she does not become significantly bradycardic overnight. She will follow up with Dr. Jensen as an outpatient. Subjective: No symptomatic bradycardia. Wants to be seen by Cards prior to discharge. No CP or SOB Objective: Vital Signs Temp Pulse Resp BP Pulse Ox 36.8 C 60 12 130/93 H 95 07/31/17 07:11 07/31/17 07:11 07/31/17 07:11 07/31/17 07:11 07/31/17 07:11 Laboratory Results 07/30/17 03:20 07/30/17 03:20 07/30/17 07/31/17 08/01/17 05:59 05:59 05:59 Intake Total 400 1250 480 Balance 400 1250 480 PT 12.0 SEC (12.0-15.0) 07/30/17 03:20 INR 0.90 (0.83-1.16) 07/30/17 03:20 - Physical Exam Constitutional: no apparent distress Eyes: PERRL Ears, Nose, Mouth, Throat: moist mucous membranes, hearing normal Cardiovascular: regular rate and rhythym Respiratory: no respiratory distress Gastrointestinal: soft, non-tender abdomen Skin: warm Neurologic: AAOx3 Psychiatric: interacting appropriately, not anxious, not encephalopathic ICD10 Worksheet Patient Problems: Problems Problem Status Onset Chest pain Acute History of coronary artery disease Acute Troponin level elevated Acute
[2017-07-31 12:20] VITALS: BP 140/79; PULSE 65; RESP 14; TEMP 97.7; O2SAT 96
--- NOTE | 2017-07-31 15:36 | PDDCSUM ---
Discharge Summary Discharge Summary: HPI/HOSPITAL COURSE: 62-year-old with a history of coronary artery disease presents with increasing chest pain after a very stressful event. The pain persisted for several hours before she came into the emergency department. Initial evaluation she did have indeterminate troponins noted and felt to ACS. Cardiac cath c/w decreased LV systolic function with an EF of 45-50%, Apical Hypokinesis, no flow limiting stenosis. Diagnosis of Takatsubo's Cardiomyopathy favored. No procedural interventions performed. Medical optimization favored. She has a hx of symptomatic bradycardia which she reports a HR in the 30's intermittently. Carvedilol 1.56mg BID started on 11/7 p.m. . She has tolerated well. No significant bradycardia. Cont Crestor 20mg daily Continue Aspirin 325 mg daily for now, may be able to change to 81mg. DDX: #. Chest pain: Elevated troponin with negative obstructive coronary artery disease. Likely Takasubo with some apical hypokinesis noted on LV gram. * Patient reluctant to try beta-radha due to previous bradycardia * # history of SVT status post ablation # history of bradycardia exacerbated by atenolol, patient has felt very fatigued previously on atenolol and is reluctant to try beta-radha please see above plan Follow U: She will follow up with Dr. Jensen as an outpatient. Card is setting her up for Cardiac rehab Exam: per my PN today Meds: see med rec. Total time spent on discharge is 40 minutes
--- NOTE | 2017-07-31 19:38 | PDCARPN ---
Cardiology Progress Note Chief Complaint: Chest pain Assessment/Plan: Assessment: Chest pain evaluation due to elevated troponin, with Cardiac Angiogram finding no obstructive disease. Cardiomyopathy with EF 45 to 50 % possibly Takotsubo. Treat with low dose Coreg as becomes ashlee with more dose. Coreg 1.56 mg BID has been tolerated well over-night. Plan: Continue Coreg 1.56 mg BID. Recommend Cardiac Rehab as out-patient. Follow up with Dr Jensen in 2 weeks. 07/31/17 19:34 Objective: Vital Signs (8 Hrs) Temp Pulse Resp BP Pulse Ox 07/31/17 12:00 36.5 C 65 14 140/79 H 96 Intake/Output (24 Hrs) 07/30/17 07/31/17 08/01/17 05:59 05:59 05:59 Intake Total 400 1250 960 Balance 400 1250 960 Intake: Oral (ml) 400 900 960 IV Intake (ml) 350 Other: Output Comment Toilet pt toileted independently Result Diagrams: 07/30/17 03:20 07/30/17 03:20 Cardiac Labs: Cardiac Lab Results (72 Hrs) 07/30/17 03:20 Troponin I 0.061 H - Physical Exam Constitutional: WDWN Cardiovascular: regular rate and rhythm, no murmurs, no rubs Peripheral Pulses: 2+: dorsalis-pedis (R), dorsalis-pedis (L) Respiratory: clear to auscultate bilat, no crackles, no wheezes Skin: warm, no edema Neurologic: AAOx3 Psychiatric: cooperative, interactive ICD10 Worksheet Patient Problems: Problems Problem Status Onset Chest pain Acute History of coronary artery disease Acute Troponin level elevated Acute
--- NOTE | 2017-08-01 15:52 | ASDISCHSUM ---
Discharge Information Plan Status:Home with No Needs Medically Cleared to Leave:07/30/2017 Discharge Date:07/31/2017 04:42 PM D/C Disposition: ADT D/C Disposition:Home, Routine, Self-Care Projected Discharge Date:07/31/2017 12:00 AM Transportation at D/C: Discharge Delay Reason: Follow-Up Date:07/31/2017 12:00 AM Discharge Slot: Final Diagnosis: Placement Information Patient Contact Information Contact Name:CHAYA Relationship:Sister Address: Work Phone: City: [facility] Phone: State/[employer] Code: Email: Financial Information Financial Class: Primary Plan Desc:MEDICARE INPATIENT Primary Plan Number:[id number] Secondary Plan Desc: Secondary Plan Number: Assessment Information [facility] CM Progress Note CM Note CM Note Notes: Pt admitted for Chest pain, will have angiogram tomorrow. Met w/pt and son present; she said she currently lives at home with other son. She plans on returning there, says son may not be there but she has friend who can come be with her to help her out if she needs it. CM w/f to see if any dc needs after angiogram. Date Signed: 07/29/2017 04:55 PM Electronically Signed By:Jennifer Calero RN Intervention Information Intervention Type:*JOSE C-Signed Date of Service:07/29/2017 09:12 AM Patient Type:Observation Staff Member:Amena Pedroza Hours: Discipline: Severity: Comment:
--- NOTE | 2017-08-01 15:52 | ASDISCHSUM ---
Discharge Information Plan Status:Home with No Needs Medically Cleared to Leave:07/30/2017 Discharge Date:07/31/2017 04:42 PM D/C Disposition: ADT D/C Disposition:Home, Routine, Self-Care Projected Discharge Date:07/31/2017 12:00 AM Transportation at D/C: Discharge Delay Reason: Follow-Up Date:07/31/2017 12:00 AM Discharge Slot: Final Diagnosis: Placement Information Patient Contact Information Contact Name:CHAYA Relationship:Sister Address: Work Phone: City: [facility] Phone: State[place] Code: Email: Financial Information Financial Class: Primary Plan Desc:MEDICARE INPATIENT Primary Plan Number:[id number] Secondary Plan Desc: Secondary Plan Number: Assessment Information [facility] CM Progress Note CM Note CM Note Notes: Pt admitted for Chest pain, will have angiogram tomorrow. Met w/pt and son present; she said she currently lives at home with other son. She plans on returning there, says son may not be there but she has friend who can come be with her to help her out if she needs it. CM w/f to see if any dc needs after angiogram. Date Signed: 07/29/2017 04:55 PM Electronically Signed By:Jennifer Calero RN Intervention Information Intervention Type:*JOSE C-Signed Date of Service:07/29/2017 09:12 AM Patient Type:Observation Staff Member:Amena Pedroza Hours: Discipline: Severity: Comment:
--- NOTE | 2017-08-01 15:52 | ASDISCHSUM ---
Discharge Information Plan Status:Home with No Needs Medically Cleared to Leave:07/30/2017 Discharge Date:07/31/2017 04:42 PM D/C Disposition: ADT D/C Disposition:Home, Routine, Self-Care Projected Discharge Date:07/31/2017 12:00 AM Transportation at D/C: Discharge Delay Reason: Follow-Up Date:07/31/2017 12:00 AM Discharge Slot: Final Diagnosis: Placement Information Patient Contact Information Contact Name:CHAYA Relationship:Sister Address: Work Phone: City: [facility] Phone: State/[place] Code: Email: Financial Information Financial Class: Primary Plan Desc:MEDICARE INPATIENT Primary Plan Number:[id number] Secondary Plan Desc: Secondary Plan Number: Assessment Information [facility] CM Progress Note CM Note CM Note Notes: Pt admitted for Chest pain, will have angiogram tomorrow. Met w/pt and son present; she said she currently lives at home with other son. She plans on returning there, says son may not be there but she has friend who can come be with her to help her out if she needs it. CM w/f to see if any dc needs after angiogram. Date Signed: 07/29/2017 04:55 PM Electronically Signed By:Jennifer Calero RN Intervention Information Intervention Type:*JOSE C-Signed Date of Service:07/29/2017 09:12 AM Patient Type:Observation Staff Member:Amena Pedroza Hours: Discipline: Severity: Comment:
== END 2017-07-31 16:42 | disposition home or self-care (01) | DRG 287 ==
LOC: F2W 17:55 → OBSVTOIN 07-29 15:15
PROVIDERS: ADMIT Hospitalist; ATTEND Hospitalist
DX: I51.81 Takotsubo syndrome (principal); I25.10 Atherosclerotic heart disease of native coronary artery without angina pectoris; F12.90 Cannabis use, unspecified, uncomplicated; J44.9 Chronic obstructive pulmonary disease, unspecified; I10 Essential (primary) hypertension; E78.5 Hyperlipidemia, unspecified; Z91.14 Patient's other noncompliance with medication regimen; Z95.5 Presence of coronary angioplasty implant and graft; Z87.891 Personal history of nicotine dependence
CPT/HCPCS: 85520-90; 96374; C1760; G0378; J1644; J2250; J3010; Q9967

== ENCOUNTER 2017-11-06 19:39 | Emergency (ER) | payer OTHER ==
[2017-11-06 19:49] VITALS: RESP 16; TEMP 97.7; O2SAT 95
--- NOTE | 2017-11-06 19:52 | EDPHY ---
H & P Time Seen by Provider: 11/06/17 19:52 HPI/ROS: CHIEF COMPLAINT: Dizziness HISTORY OF PRESENT ILLNESS: 62-year-old woman started having symptoms today at 2:00 p.m.. She describes a feeling of"like I am drunk"with her head"spinning "associated with nausea. It is better when she is remaining still or lying down and worse when she is moving her head or upright. Symptoms moderate at home and she arrives by EMS who gave her 4 mg IV Zofran in route, and now her nausea is better. Does not have headache or neck pain. No recent injury or trauma. No chest pain or weakness or numbness in extremities. No difficulty with speech or thought process. REVIEW OF SYSTEMS: Eye: no change in vision or double vision ENT: no sore throat or earache or hearing loss Cardiac: no chest pain or syncope Pulmonary: no cough or SOB Abdomen: no vomiting, diarrhea, abdominal pain Musculoskeletal: No neck pain Skin: no rash Neuro: no headache Constitutional: no fever : no urinary symptoms A comprehensive 10 point review of systems is otherwise negative aside from elements mentioned in the history of present illness. PAST MEDICAL HISTORY: Discharge summary dated 07/29/2017 personally reviewed includes tox soup 0 cardiomyopathy, SVT, chronic bradycardia. Social history: Lives independently General Appearance: Alert and conversant, cooperative. Eyes: No scleral icterus. ENT, Mouth: Normal mucous membranes. Normal tympanic membranes. Respiratory: Normal respiratory effort, breath sounds equal, lungs are clear to auscultation. Cardiovascular: Regular rate and rhythm. No carotid bruit. Gastrointestinal: Abdomen is soft and non tender. Neurological: Alert, face symmetric, normal motor and sensory in extremities. Normal [id number]-vl-[id number] and [id number]-nb-[id number] bilaterally, no pronator drift. Extraocular motion intact. Pupils equal round reactive. She does have nystagmus to the right. Skin: Warm and dry, no rashes. Musculoskeletal: No peripheral edema. Normal range of motion of the neck. Psychiatric: Not agitated. Emergency Department course/MDM: Patient presents with classical symptoms of peripheral vertigo. I think great vessel dissection or cerebellar stroke are unlikely. Oral meclizine 25 mg. 2140: Ambulatory, symptoms better, stable gait, stable for discharge. Smoking Status: Current every day smoker Constitutional: Initial Vital Signs Temperature (C) 36.5 C 11/06/17 19:47 Heart Rate 47 L 11/06/17 19:47 Respiratory Rate 16 11/06/17 19:47 Blood Pressure 157/67 H 11/06/17 19:47 O2 Sat (%) 95 11/06/17 19:47 O2 Delivery Mode Room Air Allergies/Adverse Reactions: No Allergies [NKDA] Allergy (Unknown, Verified 07/28/17 15:35) Home Medications: Medication Instructions Recorded Aspirin [Aspirin 325 mg (*)] 325 mg PO DAILY tab 07/31/17 Carvedilol [Coreg (*)] 1.56 mg PO BIDMEAL #30 tab 07/31/17 Meclizine HCl [Meclizine HCl 25 mg 25 mg PO Q6 PRN #15 tab 11/06/17 (RX,OTC)] Medical Decision Making Differential Diagnosis: Differential diagnosis considered for dizziness including but not limited to peripheral and central causes of vertigo, orthostatic causes including dehydration, and blood loss. - Data Points Medications Given: Discontinued Medications Meclizine HCl (Meclizine Hcl) 25 mg PO EDNOW ONE Stop: 11/06/17 20:03 Last Admin: 11/06/17 20:05 Dose: 25 mg Departure - Departure Disposition: Home, Routine, Self-Care Clinical Impression: Vertigo Condition: Good Instructions: Vertigo (ED) Referrals: Reyna Ovalles MD [Medical Doctor] - As per Instructions Prescriptions: Meclizine HCl [Meclizine HCl 25 mg (RX,OTC)] 25 mg PO Q6 PRN #15 tab PRN Reason: Dizziness
[2017-11-06] MEDS ORDERED: MECLIZINE HCL 25 MG TAB PO ONE (20:02)
[2017-11-06 21:36] VITALS: BP 133/61; PULSE 54
== END 2017-11-06 21:51 | disposition home or self-care (01) ==
LOC: EDUNIT#
DX: R42 Dizziness and giddiness (principal); F17.200 Nicotine dependence, unspecified, uncomplicated; Z79.82 Long term (current) use of aspirin

== ENCOUNTER 2018-07-10 17:52 | Emergency (ER) | payer OTHER ==
[2018-07-10] MEDS ORDERED: NS 500 ML IV ONE (17:55)
--- NOTE | 2018-07-10 18:03 | EDPHY ---
H & P Time Seen by Provider: 07/10/18 17:54 HPI/ROS: HPI Right-sided rib and abdominal pain. 63-year-old female by ambulance. This patient was eating at a local [employer] restaurant. She developed sudden-onset right-sided anterior lateral rib pain which radiates across her upper abdomen. Onset about an hour prior to arrival. She denies associated shortness of breath. No history of trauma. She has not had this pain in the past. She has had a cholecystectomy. No fever. She currently describes her pain as a 5/10 but improved from earlier. ROS: Constitutional: No fever, no chills. No weakness. Eyes: No discharge. No changes in vision. ENT: No sore throat. No nasal congestion or rhinorrhea. Respiratory: No cough. No shortness of breath. Cardiac: No chest pain, no palpitations. Gastrointestinal: As above, no vomiting, no diarrhea. Genitourinary: No hematuria. No dysuria or increased frequency with urination. Musculoskeletal: No back pain. No neck pain. N as above. Skin: No rashes. Neurological: No headache. No focal weakness or altered sensation. Past medical history: Tachy Lakisha bow cardiomyopathy, SVT, chronic bradycardia. Social history: Smokes marijuana prior to arrival. Lives independently. Denies alcohol. Physical Exam: General Appearance: Alert, she appears uncomfortable but not in distress. This patient is responding to questions appropriately and in full sentences. This patient appears well-hydrated and well-nourished. Eyes: Pupils equal and round no pallor or injection. No lid edema, erythema or injection. Respiratory: There are no retractions, lungs are clear to auscultation with good air movement bilaterally. Chest wall is stable to AP and lateral palpation. Cardiovascular: Regular rate and rhythm. Bradycardia. No murmur appreciated. Gastrointestinal: Abdomen is soft with vague right upper quadrant and sub costal tenderness on palpation, no rashes no erythema, warmth or edema noted, no masses, bowel sounds normal. No focal tenderness at McBurney's point. No Jaeger sign. Neurological: Motor sensory function is grossly intact. Cranial nerves are normal. Skin: Warm and dry, no rashes. Musculoskeletal: Neck is supple and nontender. Extremities are symmetrical. All joints range without pain or impingement. Psychiatric: No agitation. No depression. Database: EKG: EKG time is 5:59 p.m.; EKG shows a narrow complex normal sinus rhythm with a ventricular rate of 49. The LA, QRS, QT intervals are within normal limits. There are no ST-T wave changes indicative of ischemic or injury pattern. No evidence of right heart strain. No evidence of Brugada syndrome, WPW, hypertrophic cardiomyopathy. Interpreted by me. Imaging: Chest x-ray AP portable; the cardiac mediastinal silhouette is unremarkable. No evidence of infiltrate or pneumothorax. No acute cardiopulmonary disease process noted. Interpreted by me. CT angiogram of chest: Negative for pulmonary embolism or other significant pathology. Results were discussed with staff radiologist Dr. Red Talley. Procedures: Emergency department course: Triage vital signs reviewed. The patient does have a history of chronic bradycardia. She is afebrile. IV was placed. She was placed on a ball holder. She was started on IV normal saline with 500 cc to be given over the next hour. The patient will be given low-dose IV hydromorphone for pain if needed. Toradol also be considered pending a normal creatinine. 7:50 p.m., the patient was re-evaluated. She is present with family and friends. She denies any pain at this time. No shortness of breath. Her emergency department workup was discussed thoroughly with her and her family. At this time she feels comfortable going home. Her presentation is likely secondary to a pleurisy. I feel that pulmonary embolism, acute coronary syndrome, pneumothorax, pneumonia, traumatic injury, aortic dissection are all unlikely. Return to emergency department precautions were thoroughly reviewed with her. All of her questions were answered. The patient was discharged home in good condition with family. Differential Diagnosis: The differential diagnosis on this patient includes but is not limited to pulmonary embolism, costal chondritis, pleurisy, pneumothorax, hepatitis, colitis, ureterolithiasis, urinary tract infection. This represents a partial list of diagnoses considered. These considerations are based on history, physical exam, past history, reassessment and diagnostic testing. Smoking Status: Current every day smoker Constitutional: Initial Vital Signs Temperature (C) 36.4 C 07/10/18 18:00 Heart Rate 50 L 07/10/18 18:00 Respiratory Rate 16 07/10/18 18:00 Blood Pressure 159/80 H 07/10/18 18:00 O2 Sat (%) 98 07/10/18 18:00 O2 Delivery Mode Room Air Allergies/Adverse Reactions: No Allergies [NKDA] Allergy (Unknown, Verified 07/10/18 18:06) Home Medications: Medication Instructions Recorded Aspirin [Aspirin 325 mg (*)] 325 mg PO DAILY tab 07/31/17 Carvedilol [Coreg (*)] 1.56 mg PO BIDMEAL #30 tab 07/31/17 Meclizine HCl [Meclizine HCl 25 mg 25 mg PO Q6 PRN #15 tab 11/06/17 (RX,OTC)] Medical Decision Making - Diagnostics Imaging Results: Imaging Impressions Chest X-Ray 07/10/18 17:56 Impression: Nothing acute identified Chest/Thorax CTA 07/10/18 18:38 Impression: No evidence for pulmonary embolic disease. 2. Triple-vessel coronary artery disease. 3. Emphysema. 4. Small amount of lingular atelectasis versus scar. Results discussed with Dr. Nunez. General information for patients regarding this examination can be found at [email or web address]. If you have questions or comments about this report, please contact me at (hospital) or [phone] (cell). - Data Points Laboratory Results: Laboratory Results 07/10/18 17:53 07/10/18 17:53 07/10/18 07/10/18 07/10/18 18:40 18:06 17:53 WBC RBC Hgb Hct MCV MCH MCHC RDW Plt Count MPV Neut % (Auto) Lymph % (Auto) [place] % (Auto) Eos % (Auto) Baso % (Auto) Nucleat RBC Rel Count Absolute Neuts (auto) Absolute Lymphs (auto) Absolute Monos (auto) Absolute Eos (auto) Absolute Basos (auto) Absolute Nucleated RBC Immature Gran % Immature Gran # D-Dimer 0.61 ug/mLFEU H ug/mLFEU (0.00-0.50) Sodium Potassium Chloride Carbon Dioxide Anion Gap BUN Creatinine Estimated GFR Glucose Calcium Total Bilirubin Conjugated Bilirubin Unconjugated Bilirubin AST ALT Alkaline Phosphatase POC Troponin I 0.00 ng/mL ng/mL (0.00-0.08) Total Protein Albumin Lipase Urine Color YELLOW Urine Appearance CLEAR Urine pH 5.0 (5.0-7.5) Ur Specific [place] 1.010 (1.002-1.030) Urine Protein NEGATIVE (NEGATIVE) Urine Ketones NEGATIVE (NEGATIVE) Urine Blood NEGATIVE (NEGATIVE) Urine Nitrate NEGATIVE (NEGATIVE) Urine Bilirubin NEGATIVE (NEGATIVE) Urine Urobilinogen NEGATIVE EU EU (0.2-1.0) Ur Leukocyte Esterase NEGATIVE (NEGATIVE) Urine RBC 1-3 /hpf /hpf (0-3) Urine WBC 1-3 /hpf /hpf (0-3) Ur Epithelial Cells TRACE /lpf /lpf (NONE-1+) Urine Bacteria TRACE /hpf H /hpf (NONE SEEN) Urine Mucus TRACE /lpf /lpf (NONE-1+) Urine Glucose NEGATIVE (NEGATIVE) 07/10/18 07/10/18 17:53 17:53 WBC 5.85 10^3/uL 10^3/uL (3.80-9.50) RBC 4.55 10^6/uL 10^6/uL (4.18-5.33) Hgb 13.9 g/dL g/dL (12.6-16.3) Hct 40.9 % % (38.0-47.0) MCV 89.9 fL fL (81.5-99.8) MCH 30.5 pg pg (27.9-34.1) MCHC 34.0 g/dL g/dL (32.4-36.7) RDW 13.8 % % (11.5-15.2) Plt Count 212 10^3/uL 10^3/uL (150-400) MPV 9.7 fL fL (8.7-11.7) Neut % (Auto) 37.7 % L % (39.3-74.2) Lymph % (Auto) 47.4 % H % (15.0-45.0) [place] % (Auto) 12.0 % % (4.5-13.0) Eos % (Auto) 1.7 % % (0.6-7.6) Baso % (Auto) 1.0 % % (0.3-1.7) Nucleat RBC Rel Count 0.0 % % (0.0-0.2) Absolute Neuts (auto) 2.21 10^3/uL 10^3/uL (1.70-6.50) Absolute Lymphs (auto) 2.77 10^3/uL 10^3/uL (1.00-3.00) Absolute Monos (auto) 0.70 10^3/uL 10^3/uL (0.30-0.80) Absolute Eos (auto) 0.10 10^3/uL 10^3/uL (0.03-0.40) Absolute Basos (auto) 0.06 10^3/uL 10^3/uL (0.02-0.10) Absolute Nucleated RBC 0.00 10^3/uL 10^3/uL (0-0.01) Immature Gran % 0.2 % % (0.0-1.1) Immature Gran # 0.01 10^3/uL 10^3/uL (0.00-0.10) D-Dimer Sodium 141 mEq/L mEq/L (135-145) Potassium 3.5 mEq/L mEq/L (3.3-5.0) Chloride 110 mEq/L mEq/L (97-110) Carbon Dioxide 20 mEq/l L mEq/l (22-31) Anion Gap 11 mEq/L mEq/L (6-14) BUN 10 mg/dL mg/dL (7-23) Creatinine 0.6 mg/dL mg/dL (0.6-1.0) Estimated GFR > 60 Glucose 77 mg/dL mg/dL (70-100) Calcium 9.8 mg/dL mg/dL (8.5-10.4) Total Bilirubin 0.6 mg/dL mg/dL (0.1-1.4) Conjugated Bilirubin 0.2 mg/dL mg/dL (0.0-0.5) Unconjugated Bilirubin 0.4 mg/dL mg/dL (0.0-1.1) AST 65 IU/L H IU/L (14-46) ALT 44 IU/L IU/L (9-52) Alkaline Phosphatase 62 IU/L IU/L (38-126) POC Troponin I Total Protein 6.9 g/dL g/dL (6.3-8.2) Albumin 4.1 g/dL g/dL (3.5-5.0) Lipase 105 IU/L IU/L (23-300) Urine Color Urine Appearance Urine pH Ur Specific [place] Urine Protein Urine Ketones Urine Blood Urine Nitrate Urine Bilirubin Urine Urobilinogen Ur Leukocyte Esterase Urine RBC Urine WBC Ur Epithelial Cells Urine Bacteria Urine Mucus Urine Glucose Medications Given: Discontinued Medications Sodium Chloride (Ns) 500 mls @ 1,000 mls/hr IV EDNOW ONE PRN Reason: Protocol Stop: 07/10/18 18:24 Last Admin: 07/10/18 18:21 Dose: 500 mls Point of Care Test Results: Chemistry 07/10/18 18:06 POC Troponin I 0.00 ng/mL ng/mL (0.00-0.08) Departure - Departure Disposition: Home, Routine, Self-Care Clinical Impression: Right-sided chest wall pain Condition: Good Instructions: Chest Wall Pain (ED) Additional Instructions: Read and follow provided instructions. Follow-up with your primary care physician tomorrow or on Saturday or Saturday for re-evaluation. Ibuprofen dosin mg every 6 hours with meals for the next 3 days only. Take only as needed for pain. Return to the emergency department for worsening pain, difficulty breathing, fever or other serious concerns. Referrals: Patient,NotPresent [Unknown] - As per Instructions
[2018-07-10 18:12] LABS: PLATELET COUNT 212 10^3/uL (150-400)
[2018-07-10] MEDS ORDERED: IOPAMIDOL (ISOVUE 370) 100 ML BTL IV ONE (18:47)
--- NOTE | 2018-07-10 20:30 | CPEKG ---
Test Reason : OPEN Blood Pressure : / mmHG Vent. Rate : 049 BPM Atrial Rate : 047 BPM P-R Int : 186 ms QRS Dur : 102 ms QT Int : 458 ms P-R-T Axes : 073 020 066 degrees QTc Int : 414 ms Sinus bradycardia Confirmed by Rex Nunez ([id number]) on 07/10/2018 8:29:13 PM Referred By: Confirmed By:Rex Nunez
[2018-07-10 20:32] VITALS: BP 111/62
== END 2018-07-10 20:30 | disposition home or self-care (01) ==
LOC: EDUNIT#
DX: I25.10 Atherosclerotic heart disease of native coronary artery without angina pectoris (principal); J43.9 Emphysema, unspecified; I42.9 Cardiomyopathy, unspecified; I47.1 Supraventricular tachycardia; R00.1 Bradycardia, unspecified; F17.200 Nicotine dependence, unspecified, uncomplicated; Z90.49 Acquired absence of other specified parts of digestive tract
CPT/HCPCS: 71045; 71275; 93005; 99285; Q9967; 84484-PO

== ENCOUNTER 2018-09-02 07:49 | Emergency (ER) | payer OTHER ==
--- NOTE | 2018-09-02 08:04 | EDPHY ---
H & P Stated Complaint: R great toe injury Time Seen by Provider: 09/02/18 08:04 - Personal History Current Tetanus/Diphtheria Vaccine: Yes Current Tetanus Diphtheria and Acellular Pertussis (TDAP): Yes Tetanus Vaccine Date: March 2009 - Medical/Surgical History Hx Asthma: No Hx Chronic Respiratory Disease: No Hx Diabetes: No Hx Cardiac Disease: Yes Hx Renal Disease: No Hx Cirrhosis: No Hx Alcoholism: No Hx HIV/AIDS: No Hx Splenectomy or Spleen Trauma: No Other PMH: CARDIAC STENT, CHOLECYSTECTOMY, UMBILICAL HERNIA WITH REPAIR, TONSILLECTOMY, PE 2014, smoker, MRSA 2012 finger, - Social History Smoking Status: Heavy smoker Constitutional: Initial Vital Signs Temperature (C) 36.4 C 09/02/18 07:53 Heart Rate 70 09/02/18 07:53 Respiratory Rate 16 09/02/18 07:53 Blood Pressure 153/85 H 09/02/18 07:53 O2 Sat (%) 96 09/02/18 07:53 O2 Delivery Mode Room Air Allergies/Adverse Reactions: No Allergies [NKDA] Allergy (Unknown, Verified 09/02/18 07:52) Medical Decision Making - Diagnostics Imaging Results: Imaging Impressions Foot X-Ray 09/02/18 07:56 Impression: Acute angulated and rotated intra-articular fracture proximal phalanx great toe. Imaging: I viewed and interpreted images myself ED Course/Re-evaluation: CHIEF COMPLAINT: Right toe injury HISTORY OF PRESENT ILLNESS: This patient is a 63 year old female presenting with right toe pain secondary to an injury this morning. She was going down the stairs in her home in slippers and began to fall forward. She caught herself without falling, but her right great toe buckled under her, bearing the majority of her weight. She has instantaneous pain at the base of the toe. This persists. She denies any other injuries. She did not strike her head or lose consciousness. No chest pain, shortness of breath, lightheadedness prior to her fall, this was purely mechanical. She denies any recent illness or other associated symptoms. REVIEW OF SYSTEMS: A comprehensive 10 system review of systems is otherwise negative aside from elements mentioned in the history of present illness and medical decision making. PHYSICAL EXAM: HR, BP, O2 Sat, RR. Temp noted General Appearance: Alert, well hydrated, appropriate, and non-toxic appearing. Head: Atraumatic without scalp tenderness or obvious injury Respiratory: No retractions, no distress, no wheezes, and no accessory muscle use. Lungs are clear to auscultation bilaterally. Cardiovascular: Regular rate and rhythm, no murmurs, rubs, or gallops. Bilateral carotid, radial, dorsalis pedis, and posterior tibial pulses intact. Good capillary refill all extremities. Musculoskeletal: Pain and swelling at the base of the right great toe. Normal active ROM of all extremities. Neurological: Alert, appropriate, and interactive. The patient has normal DTRs and non-focal cranial nerves, motor, sensory, and cerebellar exam. Skin: No rashes, good turgor, no nodules on palpation. Past medical history: History of PE 2014. History of MRSA finger infection 2012. Past surgical history: Cardiac stent placed. Cholecystectomy. Umbilical hernia repair. Tonsillectomy. Family history: Noncontributory. Social history: Current smoker. Friend at bedside. Lives in [place]. DIFFERENTIAL DIAGNOSIS: Includes but not limited to sprain, strain, fracture, dislocation. MEDICAL DECISION MAKIN63 year old female presents with right great toe pain secondary to a mechanical fall earlier today. Plan for x-ray for further evaluation. Reviewed x-ray. Evidence of spiral fracture of proximal phalanx of right great toe. Plan to place patient in post-op shoe and consult with orthopedics. Reassessed patient. She requests reduction of the fracture here in the ED. I let her know this is unlikely to be a good course of action 8:[address] Teresa, application integration specialist. He states there is no utility in reducing the fracture here in the emergency department. She will follow up outpatient. Reassessed patient. Discussed my consult with Dr. Teresa. She will follow up in his office. Plan to discharge home in good condition. She has been placed in post-op shoe. Return precautions discussed. She is comfortable with this plan. Departure - Departure Disposition: Home, Routine, Self-Care Clinical Impression: Fracture of right great toe Qualifiers: Encounter type: initial encounter Fracture type: closed Phalanx: proximal Physeal involvement: not involving physis Qualified Code(s): S92.411A - Displaced fracture of proximal phalanx of right great toe, initial encounter for closed fracture Condition: Good Instructions: Toe Fracture (ED) Additional Instructions: Rest, ice, elevation. Follow up with an orthopedic surgeon within one week. Wear post-op shoe at all times until reevaluation. Return to the emergency department for worsening pain, swelling, numbness, weakness or other concerns. Referrals: Reyna Ovalles MD [Primary Care Provider] - As per Instructions Daniel Teresa MD [Medical Doctor] - As per Instructions Report Scribed for: Reilly Roland Report Scribed by: Seema Ryder Date of Report: 09/02/18 Time of Report: 08:40
[2018-09-02 08:56] VITALS: BP 172/83
== END 2018-09-02 08:56 | disposition home or self-care (01) ==
DX: S92.411A Displaced fracture of proximal phalanx of right great toe, initial encounter for closed fracture (principal); W10.9XXA Fall (on) (from) unspecified stairs and steps, initial encounter; Y92.018 Other place in single-family (private) house as the place of occurrence of the external cause; Y93.9 Activity, unspecified; Y99.9 Unspecified external cause status; F17.200 Nicotine dependence, unspecified, uncomplicated; Z95.5 Presence of coronary angioplasty implant and graft; Z86.711 Personal history of pulmonary embolism
CPT/HCPCS: 73630; 99283; L4386

== ENCOUNTER 2018-12-21 01:20 | Emergency (ER) | payer OTHER ==
[~2018-12-21 01:20] MED LIST: NS 1,000 ML IV ONE
[2018-12-21] MEDS: AMIODARONE HCL 150 MG/3 ML VIAL IV ONE ×2 (01:20→01:26)
[2018-12-21] MEDS ORDERED: AMIODARONE HCL 150 MG/3 ML VIAL ONE ×2 (01:25)
[2018-12-21] MEDS ORDERED: EPINEPHrine 1 MG/10 ML SYR IVP ONE ×3 (01:25→01:37)
[2018-12-21] MEDS ORDERED: ATROPINE SULFATE 1 MG/10 ML SYR ONE (01:25)
[2018-12-21] MEDS ORDERED: ATROPINE SULFATE 1 MG/10 ML SYR IVP ONE (01:32)
[2018-12-21] MEDS ORDERED: AMIODARONE HCL 100 ML IV ONE (01:32)
[2018-12-21 01:33] LABS: PLATELET COUNT 75 10^3/uL (150-400)
[2018-12-21 01:44] LABS: INR 1.53 (0.83-1.16); PROTIME(PATIENT) 17.7 SEC (12.0-15.0)
--- NOTE | 2018-12-21 02:17 | EDPHY ---
H & P Stated Complaint: CARDIAC ARREST Time Seen by Provider: 12/21/18 01:49 HPI/ROS: Chief Complaint: Cardiac arrest HPI: 64-year-old woman with a history of coronary artery disease had sudden onset of worsening shortness of breath this evening. EMS was called. Per EMS the patient was recently diagnosed with costochondritis 2 days ago and had been complaining of worsening shortness of breath. On arrival patient was in severe distress and then went unresponsive. Patient lots pulses. CPR was initiated. An IO was placed. Patient is intubated. Prior to arrival the patient received 4 mg of IO epinephrine. She briefly regained pulses and then went back into PEA. On arrival the patient is unresponsive, intubated, CPR in progress. ROS: Unobtainable secondary to the patient is unresponsive PMH: Coronary artery disease status post stenting Social History: Former smoker smoking, occasional alcohol, occasional marijuana Family History: Coronary artery disease Physical Exam: Gen: Unresponsive, intubated, pallor HEENT: Eyes: Pupils 6 mm in unresponsive Mouth: Oral tracheal tube in place Neck: Right anterior neck hematoma secondary to IV attempt Chest: Noted crepitus secondary to CPR, lungs clear to auscultation Heart: No heart tones Abd: Soft Ext: no edema Skin: no rash Neuro: Unresponsive - Medical/Surgical History Other PMH: UNKNOWN Constitutional: Initial Vital Signs O2 Sat (%) 90 L 12/21/18 01:20 O2 Delivery Mode Ventilator Medical Decision Making - Diagnostics EKG Interpretation: ECG time 1:30 a.m., sinus rhythm with a rate of 54, prolonged p.r. Interval, nonspecific intraventricular conduction delay, ST depression in the lateral leads. ED Course/Re-evaluation: 64-year-old woman cardiac arrest. Shortly after arrival CPR was discontinued in the patient is noted to have femoral pulses. Heart rate in his 60s. Unable to obtain a blood pressure. I would place in the left leg. IV times on bilateral upper extremities by ED staff. Respiratory therapy suctioning the tracheal tube and connected to the ventilator. Patient is having multiple runs of ventricular tachycardia. 150 mg Administer through the IO. IV line established. Additional 150 mg to the IO. Pulses lost. CPR resumed. Patient bradycardic. Atropine 1 mg IV, epinephrine 1 mg IV. Bedside ultrasound by me shows small amount of cardiac activity with no significant organized squeeze. CPR continued. Epinephrine 1 mg IV. Patient's son is at bedside. CPR stopped. Patient remains pulseless. Son is asking that we stop CPR in any further treatments. Patient is pulseless and apneic. Time of 1:52 a.m. Critical Care Time: I spent a total of 32 minutes of critical care time in obtaining history, performing a physical exam, bedside monitoring of interventions, collecting and interpreting tests and discussion with consultants but not including time spent performing procedures. - Data Points Laboratory Results: Laboratory Results 12/21/18 01:25 12/21/18 12/21/18 12/21/18 01:35 01:30 01:25 WBC 10.15 10^3/uL H 10^3/uL (3.80-9.50) RBC 4.29 10^6/uL 10^6/uL (4.18-5.33) Hgb 13.1 g/dL g/dL (12.6-16.3) POC Hgb 14.3 gm/dL gm/dL (12.6-16.3) Hct 43.4 % % (38.0-47.0) POC Hct 42 % % (38-47) MCV 101.2 fL H fL (81.5-99.8) MCH 30.5 pg pg (27.9-34.1) MCHC 30.2 g/dL L g/dL (32.4-36.7) RDW 14.0 % % (11.5-15.2) Plt Count 75 10^3/uL L 10^3/uL (150-400) MPV 10.2 fL fL (8.7-11.7) Neut % (Auto) Pending Lymph % (Auto) Pending [place] % (Auto) Pending Eos % (Auto) Pending Baso % (Auto) Pending Nucleat RBC Rel Count Pending Absolute Neuts (auto) Pending Absolute Lymphs (auto) Pending Absolute Monos (auto) Pending Absolute Eos (auto) Pending Absolute Basos (auto) Pending Absolute Nucleated RBC Pending Immature Gran % Pending Immature Gran # Pending Platelet Estimate Pending PT INR POC Sodium 142 mEq/L mEq/L (135-145) Sodium POC Potassium 3.5 mEq/L mEq/L (3.3-5.0) Potassium POC Chloride 108 mEq/L mEq/L (97-110) Chloride Carbon Dioxide POC Total CO2 16 mEq/L L mEq/L (22-31) Anion Gap POC BUN 15 mg/dL mg/dL (7-23) BUN Creatinine POC Creatinine 1.2 mg/dL H mg/dL (0.6-1.0) Estimated GFR Glucose POC Glucose 302 mg/dL H mg/dL (70-100) Calcium Total Bilirubin Conjugated Bilirubin Unconjugated Bilirubin AST ALT Alkaline Phosphatase POC Troponin I 0.13 ng/mL H ng/mL (0.00-0.08) Total Protein Albumin Lipase Ethyl Alcohol 12/21/18 12/21/18 01:25 01:25 WBC RBC Hgb POC Hgb Hct POC Hct MCV MCH MCHC RDW Plt Count MPV Neut % (Auto) Lymph % (Auto) [place] % (Auto) Eos % (Auto) Baso % (Auto) Nucleat RBC Rel Count Absolute Neuts (auto) Absolute Lymphs (auto) Absolute Monos (auto) Absolute Eos (auto) Absolute Basos (auto) Absolute Nucleated RBC Immature Gran % Immature Gran # Platelet Estimate PT 17.7 SEC H SEC (12.0-15.0) INR 1.53 H (0.83-1.16) POC Sodium Sodium Pending POC Potassium Potassium Pending POC Chloride Chloride Pending Carbon Dioxide Pending POC Total CO2 Anion Gap Pending POC BUN BUN Pending Creatinine Pending POC Creatinine Estimated GFR Pending Glucose Pending POC Glucose Calcium Pending Total Bilirubin Pending Conjugated Bilirubin Pending Unconjugated Bilirubin Pending AST Pending ALT Pending Alkaline Phosphatase Pending POC Troponin I Total Protein Pending Albumin Pending Lipase Pending Ethyl Alcohol Pending Medications Given: Discontinued Medications Amiodarone HCl (Amiodarone Hcl) 150 mg IV EDNOW ONE Stop: 12/21/18 01:32 Last Admin: 12/21/18 01:26 Dose: 150 mg Atropine Sulfate (Atropine 1 Mg/10 Ml Syringe) 1 mg IVP EDNOW ONE Stop: 12/21/18 01:33 Last Admin: 12/21/18 01:30 Dose: 1 mg Epinephrine HCl (Epinephrine) 1 mg IVP EDNOW ONE Stop: 12/21/18 01:32 Last Admin: 12/21/18 01:31 Dose: 1 mg Epinephrine HCl (Epinephrine) 1 mg IVP EDNOW ONE Stop: 12/21/18 01:38 Last Admin: 12/21/18 01:37 Dose: 1 mg Sodium Chloride (Ns) 1,000 mls @ 0 mls/hr IV EDNOW ONE; Wide Open PRN Reason: Protocol Stop: 12/21/18 01:21 Last Admin: 12/21/18 01:20 Dose: 1,000 mls Point of Care Test Results: Chemistry 12/21/18 12/21/18 01:35 01:30 POC Sodium 142 mEq/L mEq/L (135-145) POC Potassium 3.5 mEq/L mEq/L (3.3-5.0) POC Chloride 108 mEq/L mEq/L (97-110) POC Total CO2 16 mEq/L L mEq/L (22-31) POC BUN 15 mg/dL mg/dL (7-23) POC Creatinine 1.2 mg/dL H mg/dL (0.6-1.0) POC Glucose 302 mg/dL H mg/dL (70-100) POC Troponin I 0.13 ng/mL H ng/mL (0.00-0.08) ISTAT H&H 12/21/18 01:30 POC Hgb 14.3 gm/dL gm/dL (12.6-16.3) POC Hct 42 % % (38-47) Departure - Departure Disposition: Clinical Impression: Cardiac arrest Referrals: Reyna Ovalles MD [Primary Care Provider] - As per Instructions
--- NOTE | 2018-12-26 12:41 | CPEKG ---
Test Reason : OPEN Blood Pressure : / mmHG Vent. Rate : 054 BPM Atrial Rate : 000 BPM P-R Int : 259 ms QRS Dur : 149 ms QT Int : 433 ms P-R-T Axes : 105 115 -28 degrees QTc Int : 411 ms Sinus rhythm Prolonged ID interval Nonspecific intraventricular conduction delay ST depr, consider ischemia, anterior leads Confirmed by Christo Chadwick ([id number]) on 12/26/2018 12:41:07 PM Referred By: PHYSICIAN ED Confirmed By:Christo Chadwick
== END 2018-12-21 02:31 | disposition expired ==
LOC: EDBD → MERGE 01:20
PROC: 0BH17EZ Insertion of Endotracheal Airway into Trachea, Via Natural or Artificial Opening (ICD-10-PCS; principal; 2018-12-21)
PROC: 3E0A3GC Introduction of Other Therapeutic Substance into Bone Marrow, Percutaneous Approach (ICD-10-PCS; principal; 2018-12-21)
DX: I46.9 Cardiac arrest, cause unspecified (principal); M94.0 Chondrocostal junction syndrome [Tietze]; I25.10 Atherosclerotic heart disease of native coronary artery without angina pectoris; Z95.5 Presence of coronary angioplasty implant and graft; Z87.891 Personal history of nicotine dependence
CPT/HCPCS: 31500; 36680; 92950; 93005; 96374; 96375; 96376; 99291; J0282; J0461; 82435-PO; 82565-PO; 82947-PO; 84132-PO; 84295-PO; 84484-ER; 84520-PO; 85014-ER; G0480